=== PATIENT | male | born 1945 | race Caucasian/White ===

== ENCOUNTER 2017-07-13 23:14 | Inpatient (IN) ==
[2017-07-14] MEDS ORDERED: Naloxone 0.4 MG/ML INJ IVP PRN (00:44)
[2017-07-14] MEDS ORDERED: *HR* FentaNYL (PF) 100 MCG/2 ML VIAL IVP ONE (00:53)
--- NOTE | 2017-07-14 00:55 | Internal Med History&Physical ---
Date of Encounter: 07/14/17 Time of Encounter: 00:53 Internal Medicine - H&P: HPI Chief complaint: Respiratroy failure Admitted From: Direct Admit Plans for Post Hospital Care: Home History of present illness: Mr. Castillo is a 72 year old male with history of COPD, CAD s/p stents, HTN, severe aortic stenosis who is transferred from [place] with respiratory failure. He had presented there by EMS after called them as he had acute onset of respiratory distress. He was intubated upon arrival as his O2 sats were 70-80% despite bagging. I spoke to the over the phone who stated that he was doing well during the day but then suddenly started saying that he doesnt feel well. He was about to sit down when he suddenly started having respiratory issues and became lethargic and somnolent. Unsure if he was unresponisive but EMS were called. She also reports some blood around his mouth but does not describe hemoptysis. She did say that he was having a mild dry cough during the day. At [place] after intubation, his work up showed opacities and picture of ARDS. ABG showed acidosis with hypercarbia and hypoxia prior to intubation. Labs showed WBC count of 15.6. Creatinine 1.37, lactic acid 2.6, BNP >5000, troponin .08. Patient was very hypertensive with systolic in the 200s there and diastolic in the 130s. EKG with sinus tachycardia there. He was put on propofol after intubation and had a drop in his blood pressure to the 80/50 there and he subsequently received 500 cc bolus. Prior to that he received IV lasix, IV solumedrol, Nebs, IV rocephin/azithromax. When they called about the transfer, I had asked them to try to wean the patient down on the propofol and see how his BP does. It did come back up to the 90s-low 100s systolically but the patient became agitated. He was given IV fentanyl and sent here on propofol at a lower dose. Last heart cath Feb 2107 showed Moderate atheroscleotic disease and a previous stent in proximal circumflex with 100% in stent stenosis and mild-moderate progression of disease of the RCA. medical management was recommended. TTE october 2016 with EF 35-40%,, mild diastolic dysfunction, severe aortic stenosis. Past Med Surg Social Fam HX - Past Medical History Medical history: aortic aneurysm, CHF, coronary artery disease, hyperlipidemia, hypertension, TIA Psychiatric history: no psych history - Past Surgical History Surgical History: angioplasty/stent (2006), other (Abdominal aortic aneurysm repair) - Social History Smoking Status: Former smoker Smokeless Tobacco Status: No Alcohol use: none Drug use: none Internal Medicine - H&P: Meds Albuterol Sulfate [Ventolin Hfa] 18 gm IH PRN PRN 10/28/16 [History] Clopidogrel Bisulfate [Plavix] 75 mg PO DAILY 10/28/16 [History] Docusate [Colace] 100 mg PO DAILY 10/28/16 [History] Ezetimibe [Zetia] 10 mg PO DAILY 10/28/16 [History] Isosorbide MONOnitrate (24 HR) [Imdur] 60 mg PO DAILY 10/28/16 [History] Lisinopril [Zestril] 10 mg PO DAILY 10/28/16 [History] Rosuvastatin [Crestor] 40 mg PO HS 10/28/16 [History] Cetirizine HCl [Zyrtec] 10 mg PO DAILY PRN #0 10/30/16 [Rx] Furosemide [Lasix] 40 mg PO DAILY 07/04/17 [History] raNITIdine HCl [Ranitidine HCl] 300 mg PO DAILY 07/04/17 [History] traZODone [TraZODone] 50 mg PO HS PRN 07/13/17 [History] 3 Allergy/AdvReac Type Severity Reaction Status Date / Time citalopram AdvReac Confusion Verified 03/01/17 07:43 ROS unobtainable: due to endotracheal tube All Systems PM: A 10-system review of systems was performed and is negative for pertinent findings except as documented above in the HPI. - Constitutional Exam: GEN: Intubated, sedated HEENT: AT, NC, No cyanosis, oral mucosa is moist, No JVD Lymphatics: No lymphadenoapthy Eyes: Extrocular muscles intact, anicteric CVS:RRR. S1, S2, No m/r/g RESP: Diffuse crackles with coarse breath sounds throughout. ABD: Soft, NT, ND, +BS EXT: No edema, No rashes, 2+ DP NEURO: Patient is sedated but pupils are equal and reactive to light. Internal Med - H&P Results - Labs CBC & Chem 7: 07/14/17 00:46 07/14/17 00:46 - Assessment and plan (1) Acute respiratory failure with hypoxia and hypercapnia Current Visit: Yes Status: Acute Assessment and plan: Multifactorial with acute heart failure, pneumonia, and COPD exacerbation. PE is in the differential as well. Patient is on the vent. Try to wean down propofol and put on fentanyl in person to help his blood pressure. Pulmonary is consulted and they were on the phone with the patient was called for transfer. Stat ABG. Treat underlying causes as below. (2) Elevated troponin Current Visit: Yes Status: Acute Assessment and plan: Mildly elevated at 0.08. On the monitor the patient has ST depression however there was some ST depression and elevation on his previous EKG as well. We will repeat this EKG here and order stat troponins and trend them. Cardiology consult. Echocardiogram ordered. (3) Acute exacerbation of congestive heart failure Current Visit: Yes Status: Acute Assessment and plan: Consult cardiology. Echocardiogram. Lasix 40 mg twice a day IV on blood pressure tolerates. Patient is status post 40 mg IV Lasix at [place]. Monitor I&O 's. Qualifiers: Heart failure type: combined systolic and diastolic Qualified Code(s): I50.43 - Acute on chronic combined systolic (congestive) and diastolic ( congestive) heart failure (4) Pneumonia Current Visit: Yes Status: Acute Assessment and plan: We will continue Zithromax and Rocephin. Follow up on cultures. Nebs. Qualifiers: Pneumonia type: due to unspecified organism Laterality: unspecified laterality Lung location: unspecified part of lung Qualified Code(s): J18.9 - Pneumonia, unspecified organism (5) COPD exacerbation Current Visit: Yes Status: Acute Assessment and plan: Patient has history of COPD and not on oxygen. We will place on IV Solu- Medrol. Vent support. (6) Hypertensive emergency Current Visit: No Status: Acute Assessment and plan: Blood pressure was elevated at [place] is mentioned in HPI. Currently somewhat hypotensive. We will try to wean him off propofol and see how his blood pressure does. (7) DVT prophylaxis Current Visit: Yes Status: Acute Assessment and plan: SCDs - Time Spent With Patient Total time spent is greater than 50% in coordination of care (as documented) at patient's floor/unit and/or counseling patient:
[2017-07-14] MEDS: FentaNYL (PF) 1,000 MCG in 0.9 % Sodium Chloride 80 ML IVC SCH ×3 (01:24→23:36)
[2017-07-14 01:31] LABS: Basophils % 0.1 %; Eosinophils % 0.1 %; Hematocrit 42.8 % (37.5-50.1); Hemoglobin 14.2 g/dL (12.9-16.9); Immature Granulocytes % 0.5 % (0-4); Lymphocytes # 0.8 K/mcL (0.6-4.6); Lymphocytes % 7.4 %; Mean Corpuscular HGB Conc 33.2 g/dL (31.6-35.5); Mean Corpuscular Hemoglobin 29.7 pg (28.0-33.3); Mean Corpuscular Volume 89.5 fL (83.0-100.0); Mean Platelet Volume 11.2 fL (9.4-12.4); Monocytes # 0.2 K/mcL (0.0-1.3); Monocytes % 2.1 %; Neutrophils # 9.7 K/mcL (1.6-8.9); Red Blood Count 4.78 M/mcL (4.19-5.50); Red Cell Distribution Width 15.1 % (11.5-14.5); Segmented Neutrophils % 89.8 %
[2017-07-14 01:32] LABS: Platelet Count 93 K/mcL (140-400)
[2017-07-14 01:34] LABS: ABG Base Excess 0 mEq/L (-2 to 3); ABG HCO3 27 mEq/L (21-27); ABG Oxygen Saturation 97 % (95-98); ABG PCO2 48 mmHg (35-45); ABG PH 7.35 pH Units (7.32-7.45); ABG PO2 94 mmHg (85-104); ABG TCO2 28 mEq/L (20-26); Blood Gas Modality PRVC; Blood Gas PEEP 5 cm H2O; Blood Gas Respiration Rate 14; Blood Gas VT 450 cc
[2017-07-14 01:56] LABS: BUN/Creatinine Ratio 14 (6-26); Blood Urea Nitrogen 18 mg/dL (8-23); Calcium 8.2 mg/dL (8.6-10.3); Carbon Dioxide 24 mEq/L (23-29); Chloride 106 mEq/L (98-107); Glucose 136 mg/dL (70-105); Osmolality,Calculated 290 (280-300); Potassium 3.8 mEq/L (3.5-5.1); Sodium 138 mEq/L (136-145); Troponin I 1.23 ng/mL (< 0.04); eGFR For African Americans > 60 (> 60); eGFR For Non-African Americans 55 (> 60)
[2017-07-14] MEDS ORDERED: *HR* Heparin 5,000 UNIT/ML VIAL IVP PRN ×2 (02:37)
[2017-07-14] MEDS ORDERED: *HR* Heparin 5,000 UNIT/ML VIAL IVP ONE (02:37)
--- NOTE | 2017-07-14 02:40 | Event Note ---
Date of Encounter: 07/14/17 Time of Encounter: 02:38 Repeat EKG here showed some concerning findings including ST depressions in some leads and mild ST elevation. Discussed with Dr. Mcallister over the phone and images of EKGs from today and previous were sent to him. Trops came back at 1.23 [facility] Mc[facility]'s opinion is that it is not a STEMI and recommended trending cardiac enzymes. Will start a heparin drip.
[2017-07-14 03:09] LABS: INR 1.2; Prothrombin Time 13.3 Seconds (9.4-12.1)
[2017-07-14 03:12] LABS: Activated Partial Thrombo Time 31.2 Seconds (26.0-36.0)
[2017-07-14] MEDS: Ipratropium/Albuterol Neb 3 ML IH SCH ×4 (03:35→20:08)
[2017-07-14] MEDS: Heparin 25,000 UNIT/500 ML D5W 25,000 UNIT/500 ML BAG IVC SCH ×2 (04:11→23:39)
[2017-07-14] MEDS ORDERED: *HR* Heparin 5,000 UNIT/ML VIAL SQ SCH (06:00)
[2017-07-14] MEDS: methylPREDNISolone 125 MG/2 ML VIAL IVP SCH ×5 (06:07→23:38)
[2017-07-14] MEDS: cefTRIAXone 1,000 MG in Water for inj. (sterile) 20 ML 10 ML IVP SCH (07:34)
[2017-07-14 07:43] LABS: Alanine Aminotransferase 17 Units/L (7-52); Albumin 3.1 g/dL (3.5-5.7); Albumin/Globulin Ratio 1.1 (1.1-2.2); Alkaline Phosphatase 113 Units/L (34-104); Aspartate Amino Transferase 31 Units/L (13-39); BUN/Creatinine Ratio 15 (6-26); Bilirubin,Total 0.6 mg/dL (0.3-1.0); Blood Urea Nitrogen 21 mg/dL (8-23); Calcium 8.1 mg/dL (8.6-10.3); Carbon Dioxide 25 mEq/L (23-29); Chloride 106 mEq/L (98-107); Globulin 2.8 g/dL (2.4-3.5); Glucose 161 mg/dL (70-105); Osmolality,Calculated 294 (280-300); Sodium 139 mEq/L (136-145); Total Protein 5.9 g/dL (6.4-8.9); eGFR For African Americans > 60 (> 60); eGFR For Non-African Americans 51 (> 60)
[2017-07-14] MEDS ORDERED: Furosemide 40 MG/4 ML VIAL IVP SCH (08:00)
--- NOTE | 2017-07-14 08:41 | Pulmonology Consult Note ---
<Supa Cho - Last Filed: 07/14/17 10:32> Date of Encounter: 07/14/17 Time of Encounter: 07:10 Assessment and Plan (1) Acute respiratory failure with hypoxia and hypercapnia Current Visit: Yes Status: Acute Acute respiratory failure with hypoxia and hypercapnia, intubated on ventilator Acutely distressed on presentation, intubated immediately Likely cause of distress is acute pulmonary edema secondary to heart failure/ NSTEMI CXR showed diffuse opacification consistent with flash pulmonary edema ABG 7.12/80/55/26/75 on 100% NRB 7.35/48/94/27/97 on 60% FIO2 (PRVC) Suspect this is in response to cardiac stress from NSTEMI We will get a Stat TTE, Consult cardiology Don't highly suspect infectious etiology, but will start empiric antibiotics and deescalate as able Rocephin Day 1 Azithromycin Day 1 We will give IV Diuresis with 40mg Lasix BID Monitor Daily ABGs (2) NSTEMI (non-ST elevated myocardial infarction) Current Visit: Yes Status: Acute NSTEMI Elevated troponins trending up (0.03 -> 0.08 -> 1.23 -> 1.62) Flash pulmonary edema on CXR and EKG did show ST-T Depressions in inferolateral leads which appears to be new We will repeat TTE today Continue heparin drip pending cardiology evaluation Cardiology consult, appreciate recommendations (3) CHF (congestive heart failure) Current Visit: Yes Status: Acute CHF with reduced LVEF, acute exacerbation Flash pulmonary edema on CXR, BNP >5000 TTE 10/2016 LVEF 35-40% Moderate global LV systolic dysfunction Apparent Severe Aortic stenosis [facility] 02/24 Moderate atherosclerotic CAD Prior stent to proximal circumflex with 100% stenosis Moderate RCA disease which was not stented We will give Lasix IV for aggressive diuresis Repeat TTE today Cardiology consultation Qualifiers: Heart failure type: systolic Heart failure chronicity: acute on chronic Qualified Code(s): I50.23 - Acute on chronic systolic (congestive) heart failure (4) COPD exacerbation Current Visit: Yes Status: Acute COPD, suspected exacerbation IV Solu-medrol 60mg q6h Broad spectrum antibiotics (5) DVT prophylaxis Current Visit: Yes Status: Acute On heparin drip History of Present Illness Consult date: 07/14/17 Requesting physician: Summer Blake Reason for consult: other (Respiratory failure) Chief complaint: Respiratory failure History of present illness: Mr. Castillo -year-old gentleman with history of COPD, CAD status post stents, hypertension, severe aortic stenosis was transferred from [place] with respiratory failure. He is intubated at time of examination and history is primarily obtained from previous notes as well as family. He initially presented to [place] via EMS due to acute respiratory distress. The patient was at home and went to sit down, at which time he became lethargic and stated that he did not feel well. Shortly after that he became unresponsive and EMS was called. The apparently did mention that there is blood around his mouth but describes no hemoptysis to be seen. Prior to this incident the patient was apparently well despite a mild dry cough. Upon arrival of EMS, it was apparently noted that the patient's oxygen saturation was 70-80%, despite use of BVM for additional respirations. At [facility], the patient presented in acute respiratory distress and was immediately intubated. At that time he had a chest x-ray which demonstrated diffuse opacifications which was concerning for ARDS, and his ABG demonstrated hypercapnia and hypoxia. Significantly, he was found to have a BNP of greater than 5000 and a positive troponin of 0.08. He also experienced hypotension with blood pressures around 80/50 with the addition of IV sedation, however it improved with fluids and lower sedation doses. He was transferred to the [facility] ICU for further management. Past Med Surg Social Fam - Past Medical History Medical history: aortic aneurysm, CHF, coronary artery disease, hyperlipidemia, hypertension, TIA Psychiatric history: no psych history - Past Surgical History Surgical History: angioplasty/stent (2006), other (Abdominal aortic aneurysm repair) - Social History Smoking Status: Former smoker Smokeless Tobacco Status: No Alcohol use: none Drug use: none Medications and Allergies Albuterol Sulfate [Ventolin Hfa] 18 gm IH PRN PRN 10/28/16 [History] Clopidogrel Bisulfate [Plavix] 75 mg PO DAILY 10/28/16 [History] Docusate [Colace] 100 mg PO DAILY 10/28/16 [History] Ezetimibe [Zetia] 10 mg PO DAILY 10/28/16 [History] Isosorbide MONOnitrate (24 HR) [Imdur] 60 mg PO DAILY 10/28/16 [History] Lisinopril [Zestril] 10 mg PO DAILY 10/28/16 [History] Rosuvastatin [Crestor] 40 mg PO HS 10/28/16 [History] Cetirizine HCl [Zyrtec] 10 mg PO DAILY PRN #0 10/30/16 [Rx] Furosemide [Lasix] 40 mg PO DAILY 07/04/17 [History] raNITIdine HCl [Ranitidine HCl] 300 mg PO DAILY 07/04/17 [History] traZODone [TraZODone] 50 mg PO HS PRN 07/13/17 [History] Metoprolol Succinate [Toprol Xl] 25 mg PO DAILY 07/14/17 [History] 3 Allergy/AdvReac Type Severity Reaction Status Date / Time citalopram AdvReac Confusion Verified 03/01/17 07:43 ROS unobtainable: due to endotracheal tube All Systems: The remainder of the systems were reviewed and are negative Physical Examination Vital Signs: Vital Signs, Last 4 Hours Temp Pulse Resp BP Pulse Ox 07/14/17 07:54 96.5 F L 07/14/17 07:45 61 07/14/17 07:22 15 106/72 96 07/14/17 07:00 59 16 106/72 96 07/14/17 06:12 16 97/65 96 07/14/17 06:00 61 16 97/65 96 07/14/17 05:06 66 18 100/69 96 Gen: Vitals noted. No acute distress. Mildly sedated on ventilator HEENT: PERRL/EOMI, oropharynx clear, Normocephalic, atraumatic Neck: Supple. No adenopathy. No obvious JVD Cardiac: RRR, no murmur, +S1/S2 Pulmonary: Lung sounds coarse b/l with some wet crackles noted Abdomen: soft, nontender, no guarding Back: Nontender throughout. MSK: ROM intact, no joint swelling noted Extremities: no BLE edema, nontender calf, no cyanosis or clubbing Neuro: moves all extremities, no focal deficits on mild sedation Ventilator Settings Ventilator Settings: Ventilator Settings, Last 8 Hours Ventilator Mode VC+ Ventilator Mode VC+ Ventilator Mode VC+ Ventilator Mode VC+ Ventilator Mode VC+ Ventilator Mode VC+ Ventilator Mode VC+ Ventilator Tidal Volume 450 Setting Ventilator Tidal Volume 450 Setting Ventilator Tidal Volume 450 Setting Ventilator Tidal Volume 450 Setting Ventilator Tidal Volume 450 Setting Ventilator Tidal Volume 450 Setting Ventilator Tidal Volume 450 Setting Ventilator Tidal Volume 450 Setting Ventilator Tidal Volume 450 Setting Ventilator Tidal Volume 450 Setting Ventilator Tidal Volume 450 Setting Ventilator Respiratory Rate 14 Setting Ventilator Respiratory Rate 14 Setting Ventilator Respiratory Rate 14 Setting Ventilator Respiratory Rate 14 Setting Ventilator Respiratory Rate 14 Setting Ventilator Respiratory Rate 14 Setting Ventilator Respiratory Rate 14 Setting Ventilator Respiratory Rate 14 Setting Ventilator Respiratory Rate 14 Setting Ventilator Respiratory Rate 14 Setting Ventilator Respiratory Rate 14 Setting Actual Respiratory Rate 15 Actual Respiratory Rate 16 Actual Respiratory Rate 15 Actual Respiratory Rate 16 Actual Respiratory Rate 18 Actual Respiratory Rate 16 Actual Respiratory Rate 16 Actual Respiratory Rate 18 Actual Respiratory Rate 20 Actual Respiratory Rate 22 Actual Respiratory Rate 25 Positive End Expiratory 5 Pressure Positive End Expiratory 5 Pressure Positive End Expiratory 5 Pressure Positive End Expiratory 5 Pressure Positive End Expiratory 5 Pressure Positive End Expiratory 5 Pressure Positive End Expiratory 5 Pressure Positive End Expiratory 5 Pressure Positive End Expiratory 5 Pressure Positive End Expiratory 5 Pressure Positive End Expiratory 5 Pressure Peak Inspiratory Airway 21 Pressure Peak Inspiratory Airway 17 Pressure Peak Inspiratory Airway 19 Pressure Peak Inspiratory Airway 17 Pressure Peak Inspiratory Airway 18 Pressure Peak Inspiratory Airway 19 Pressure Peak Inspiratory Airway 20 Pressure Peak Inspiratory Airway 19 Pressure Peak Inspiratory Airway 20 Pressure Peak Inspiratory Airway 21 Pressure Peak Inspiratory Airway 19 Pressure Results - Laboratory Findings CBC and BMP: 07/14/17 00:46 07/14/17 07:15 ABG ABG pH 7.35 pH Units (7.32-7.45) D 07/14/17 01:31 ABG pCO2 48 mmHg (35-45) H D 07/14/17 01:31 ABG pO2 94 mmHg (85-104) 07/14/17 01:31 ABG O2 Saturation 97 % (95-98) 07/14/17 01:31 PT/INR, D-dimer PT 13.3 Seconds (9.4-12.1) H 07/14/17 01:20 Abnormal lab findings: Abnormal lab results RDW 15.1 % (11.5-14.5) H 07/14/17 00:46 Plt Count 93 K/mcL (140-400) L 07/14/17 00:46 Neutrophils # 9.7 K/mcL (1.6-8.9) H 07/14/17 00:46 PT 13.3 Seconds (9.4-12.1) H 07/14/17 01:20 ABG pCO2 48 mmHg (35-45) H D 07/14/17 01:31 ABG Total CO2 28 mEq/L (20-26) H 07/14/17 01:31 Creatinine 1.37 mg/dL (0.70-1.30) H 07/14/17 07:15 Est GFR (Non-Af Amer) 51 (> 60) L 07/14/17 07:15 Glucose 161 mg/dL (70-105) H 07/14/17 07:15 POC Glucose 114 mg/dL (70-99) H 07/14/17 00:36 Calcium 8.1 mg/dL (8.6-10.3) L 07/14/17 07:15 Alkaline Phosphatase 113 Units/L (34-104) H 07/14/17 07:15 Troponin I 1.62 ng/mL (< 0.04) H* 07/14/17 07:15 B-Natriuretic Peptide > 5000 pg/mL (Less than 100) H 07/14/17 07:15 Serum Total Protein 5.9 g/dL (6.4-8.9) L 07/14/17 07:15 Albumin 3.1 g/dL (3.5-5.7) L 07/14/17 07:15 - Microbiology Findings Microbiology Findings: Microbiology, Last 48 Hours 07/14/17 02:46 Legionella Antigen - Final Urine,Clean Catch Streptococcus pneumoniae Antigen (M - Final - Clinical Findings Intake & Output: Intake & Output 07/13/17 07/14/17 07/14/17 23:59 07:59 15:59 Intake Total 111 / 111 Output Total 625 / 625 Balance -514 / -514 Weight 65.1 kg Consult Discharge Plan - Plan Referrals: Brad Collins DO [Primary Care Provider] - <Brandi Valdivia - Last Filed: 07/14/17 15:07> Date of Encounter: 07/14/17 All Systems: The remainder of the systems were reviewed and are negative Physical Examination Vital Signs: Vital Signs, Last 4 Hours Temp Pulse Resp BP Pulse Ox 07/14/17 13:00 68 14 75/55 96 07/14/17 12:00 72 14 77/59 96 07/14/17 11:26 96.4 F L 07/14/17 11:22 22 99/65 95 07/14/17 11:00 69 Ventilator Settings Ventilator Settings: Ventilator Settings, Last 8 Hours Ventilator Mode VC+ Ventilator Mode VC+ Ventilator Mode VC+ Ventilator Mode VC+ Ventilator Mode VC+ Ventilator Mode VC+ Ventilator Mode VC+ Ventilator Tidal Volume 450 Setting Ventilator Tidal Volume 450 Setting Ventilator Tidal Volume 450 Setting Ventilator Tidal Volume 450 Setting Ventilator Tidal Volume 450 Setting Ventilator Tidal Volume 450 Setting Ventilator Tidal Volume 450 Setting Ventilator Tidal Volume 450 Setting Ventilator Tidal Volume 450 Setting Ventilator Tidal Volume 450 Setting Ventilator Respiratory Rate 14 Setting Ventilator Respiratory Rate 14 Setting Ventilator Respiratory Rate 14 Setting Ventilator Respiratory Rate 14 Setting Ventilator Respiratory Rate 14 Setting Ventilator Respiratory Rate 14 Setting Ventilator Respiratory Rate 14 Setting Ventilator Respiratory Rate 14 Setting Ventilator Respiratory Rate 14 Setting Ventilator Respiratory Rate 14 Setting Actual Respiratory Rate 14 Actual Respiratory Rate 14 Actual Respiratory Rate 22 Actual Respiratory Rate 14 Actual Respiratory Rate 14 Actual Respiratory Rate 14 Actual Respiratory Rate 14 Actual Respiratory Rate 15 Actual Respiratory Rate 16 Positive End Expiratory 8 Pressure Positive End Expiratory 8 Pressure Positive End Expiratory 8 Pressure Positive End Expiratory 8 Pressure Positive End Expiratory 8 Pressure Positive End Expiratory 8 Pressure Positive End Expiratory 8 Pressure Positive End Expiratory 8 Pressure Positive End Expiratory 5 Pressure Positive End Expiratory 5 Pressure Peak Inspiratory Airway 14 Pressure Peak Inspiratory Airway 13 Pressure Peak Inspiratory Airway 19 Pressure Peak Inspiratory Airway 21 Pressure Peak Inspiratory Airway 24 Pressure Peak Inspiratory Airway 19 Pressure Peak Inspiratory Airway 17 Pressure Peak Inspiratory Airway 21 Pressure Peak Inspiratory Airway 17 Pressure Results - Laboratory Findings CBC and BMP: 07/14/17 00:46 07/14/17 07:15 ABG ABG pH 7.33 pH Units (7.32-7.45) 07/14/17 14:37 ABG pCO2 49 mmHg (35-45) H 07/14/17 14:37 ABG pO2 135 mmHg (85-104) H 07/14/17 14:37 ABG O2 Saturation 99 % (95-98) H 07/14/17 14:37 PT/INR, D-dimer PT 13.3 Seconds (9.4-12.1) H 07/14/17 01:20 Abnormal lab findings: Abnormal lab results RDW 15.1 % (11.5-14.5) H 07/14/17 00:46 Plt Count 93 K/mcL (140-400) L 07/14/17 00:46 Neutrophils # 9.7 K/mcL (1.6-8.9) H 07/14/17 00:46 PT 13.3 Seconds (9.4-12.1) H 07/14/17 01:20 APTT 156.4 Seconds (26.0-36.0) H* D 07/14/17 10:32 ABG pCO2 49 mmHg (35-45) H 07/14/17 14:37 ABG pO2 135 mmHg (85-104) H 07/14/17 14:37 ABG Total CO2 28 mEq/L (20-26) H 07/14/17 14:37 ABG O2 Saturation 99 % (95-98) H 07/14/17 14:37 Creatinine 1.37 mg/dL (0.70-1.30) H 07/14/17 07:15 Est GFR (Non-Af Amer) 51 (> 60) L 07/14/17 07:15 Glucose 161 mg/dL (70-105) H 07/14/17 07:15 POC Glucose 114 mg/dL (70-99) H 07/14/17 00:36 Calcium 8.1 mg/dL (8.6-10.3) L 07/14/17 07:15 Alkaline Phosphatase 113 Units/L (34-104) H 07/14/17 07:15 Troponin I 1.10 ng/mL (< 0.04) H* 07/14/17 12:44 B-Natriuretic Peptide > 5000 pg/mL (Less than 100) H 07/14/17 07:15 Serum Total Protein 5.9 g/dL (6.4-8.9) L 07/14/17 07:15 Albumin 3.1 g/dL (3.5-5.7) L 07/14/17 07:15 - Microbiology Findings Microbiology Findings: Microbiology, Last 48 Hours 07/14/17 02:46 Legionella Antigen - Final Urine,Clean Catch Streptococcus pneumoniae Antigen (M - Final - Clinical Findings Intake & Output: Intake & Output 07/13/17 07/14/17 07/14/17 23:59 07:59 15:59 Intake Total 111 / 111 63 / 63 Output Total 625 / 625 100 / 100 Balance -514 / -514 -37 / -37 Weight 65.1 kg - Attending Attestation I saw and evaluated this patient and my medical decision-making was reviewed with the Resident Physician. I agree with the documented findings, disposition and treatment plan as described except to the extent set forth below. We independently had [id number] contact with the patient I spent 40 minutes of Critical Care time with this patient. It involved decision making of high complexity to assess, manipulate, and support vital organ system failure and/or to prevent further life threatening deterioration of the patient's condition. The time involved in the performance of separately reportable procedures was not counted toward critical care time. Patient seen and examined at bedside Labs, radiology, chart personally reviewed. Management was reviewed during multidisciplinary critical care rounds. BRIM MOLDER:Patient is intubated and sedated but patient is arousable and he is following commands . Pulm: Patient presented with Acute on chronic respiratory failure with hypoxia and hyercarbia secondary to cardiogenic pulmonary edema with background chronic systolic heart failure with EF 35-40% BNP> 5000 complicated by moderare to severe aortic stenosis with NSTEM with trending down troponin . ECHO pending . Cardiology consulted Cards: Blood pressure border line will hold off lasix To continue ASA , Hepain for NSTEMI . Patient has moderate to Severe Aortic stenosis if patient is not getting better he might need tertiary care referral for evaluation for TAVR FEN-GI:Nutrition per recs Renal: Lab reviewed ID:: No active source of infection because of the blood pressure borderline rajan cultures will add leavquin to Ceftraxone Heme/Onc: Labs reviewed Endo: Glucose Monitored Integ/MSK: Skin Care per routine ICU Nursing Protocol to prevent ulcers. Lines: All lines examined without evidence of infection : Dispo: Remains critically ill CODE:Full Code
[2017-07-14] MEDS: Aspirin 325 MG TABLET GTUBE SCH (10:07)
[2017-07-14 11:53] LABS: Activated Partial Thrombo Time 156.4 Seconds (26.0-36.0)
[2017-07-14 11:57] LABS: Heparin anti-factor XA UFH 0.6 IU/mL (0.30-0.70)
--- NOTE | 2017-07-14 13:05 | Cardiology Consult Note ---
Date of Encounter: 07/14/17 Time of Encounter: 13:02 Assessment and Plan (1) Aortic stenosis Current Visit: Yes Status: Acute Personally reviewed patient's NICHELLE images again. NICHELLE images were not optimal and CHRISTIANO by Continuity could not be well obtained. Visually, degree of narrowing appears moderate-severe. Would unlikely be a good candidate for OHS. May consider referral for TAVR once patient has clinically improved. Echo ordered by primary service. Qualifiers: Cardiac valve disease etiology: etiology unspecified Qualified Code(s): I35.0 - Nonrheumatic aortic (valve) stenosis (2) CHF (congestive heart failure) Current Visit: Yes Status: Acute Cause for presentation thought secondary to acute flash pulmonary edema per records. Patient had an echo in October 2016 demonstrating EF 35-40% when he was hospitalized at [place]. This was presumably new - prior echo from March 2014 demonstrated normal LV systolic function. As an outpatient, he underwent heart catheterization to look for obstructive CAD as a potential cause for this finding. Intervention was not performed at the time. Catheterization demonstrated moderate CAD, known occluded circumflex stent, mild to moderate RCA disease. Agree with IV diuresis at this time as BP allows. BB on hold due to blood pressure. BP management per primary team. Echo pending. Qualifiers: Heart failure type: systolic Heart failure chronicity: acute on chronic Qualified Code(s): I50.23 - Acute on chronic systolic (congestive) heart failure (3) Elevated troponin Current Visit: Yes Status: Acute Troponin elevation to 1.62, now downtrending. Etiology unclear and may represent ACS. Await echo findings. Continue heparin gtt, asa, statin. Discussion w patient/family: Patient intubated and sedated. Family not present. Thank you for involving us in the care of your patient. Please call with any questions. History of Present Illness Consult date: 07/14/17 Requesting physician: Summer Blake Consult reason: CHF, aortic stenosis Chief complaint: Dyspnea History of present illness: Mr. Castillo is a 72 year old male who is presently intubated and sedated. Per medical notes, patient presented with hypertensive urgency, acute respiratory distress with chest x-ray demonstrating diffuse pulmonary edema and concern for ARDS. He initially presented to [place] emergency room and was transferred here. The patient is known to me from outpatient setting having initially been referred 01/15/17 after being diagnosed with newly discovered LV systolic heart failure, EF 35-40% in October 2016 when he was admitted at that time. Echo also demonstrated severe aortic stenosis with area gradient mismatch. Medical history also significant for NSTEMI March 2014 where he underwent a heart catheterization showing total occlusion of the left circumflex I could not be intervened upon. At that time an echo demonstrated normal LV systolic function with mild to moderate aortic stenosis. Patient subsequently underwent a NICHELLE in February of 2017 which demonstrated trileaflet aortic valve with partial fusion of the left and noncoronary cusps restricting leaflet motion. By planimentry, CHRISTIANO 1.87cm2. Unable to adequately determine CHRISTIANO by Continuity. Visually, degree of narrowing did not appear severe. At the bedside, the patient is intubated and sedated. Labs demonstrated elevated troponin. Patient was started on heparin. He is being diuresed with IV Lasix. Past Med Surg Social Fam HX - Past Medical History Source: old records reviewed Medical history: CHF, coronary artery disease, hyperlipidemia, hypertension, TIA , valvular heart disease Psychiatric history: no psych history - Past Surgical History Surgical History: angioplasty/stent (2006), other (Abdominal aortic aneurysm repair) - Social History Smoking Status: Former smoker Smokeless Tobacco Status: No Alcohol use: none Drug use: none Medications and Allergies Albuterol Sulfate [Ventolin Hfa] 18 gm IH PRN PRN 10/28/16 [History] Clopidogrel Bisulfate [Plavix] 75 mg PO DAILY 10/28/16 [History] Docusate [Colace] 100 mg PO DAILY 10/28/16 [History] Ezetimibe [Zetia] 10 mg PO DAILY 10/28/16 [History] Isosorbide MONOnitrate (24 HR) [Imdur] 60 mg PO DAILY 10/28/16 [History] Lisinopril [Zestril] 10 mg PO DAILY 10/28/16 [History] Rosuvastatin [Crestor] 40 mg PO HS 10/28/16 [History] Cetirizine HCl [Zyrtec] 10 mg PO DAILY PRN #0 10/30/16 [Rx] Furosemide [Lasix] 40 mg PO DAILY 07/04/17 [History] raNITIdine HCl [Ranitidine HCl] 300 mg PO DAILY 07/04/17 [History] traZODone [TraZODone] 50 mg PO HS PRN 07/13/17 [History] 3 Allergy/AdvReac Type Severity Reaction Status Date / Time citalopram AdvReac Confusion Verified 03/01/17 07:43 ROS unobtainable: due to endotracheal tube All Systems Review: The remainder of the systems were reviewed and are negative Physical Examination Vital Signs, Last 4 Hours Temp Pulse Resp BP Pulse Ox 07/14/17 11:26 96.4 F L 07/14/17 11:22 22 99/65 95 07/14/17 11:00 69 07/14/17 10:00 74 14 99/65 95 07/14/17 09:19 14 103/71 96 General: Other (intubated, sedated) HEENT: Atraumatic, Normocephaly Neck: Other (JVP not well appreciated) Cardiac: Reg Rate and Rhythm, Other (murmur not well appreciated) Lungs: Other (diminished breath sounds bilaterally) Neuro: Other (intubated, sedated, ETT in place) Extremities: No Edema Results 07/14/17 00:46 07/14/17 07:15 Lab Results 07/14/17 07/14/17 07/14/17 00:46 00:46 01:20 WBC 10.8 Hgb 14.2 D Hct 42.8 Plt Count 93 L INR 1.2 APTT 31.2 Sodium 138 Potassium 3.8 Chloride 106 Carbon Dioxide 24 BUN 18 Creatinine 1.27 Glucose 136 H Calcium 8.2 L Total Bilirubin AST ALT Alkaline Phosphatase Troponin I 1.23 H* B-Natriuretic Peptide 07/14/17 07/14/17 07/14/17 07:15 07:15 07:15 WBC Hgb Hct Plt Count INR APTT Sodium 139 Potassium 4.0 Chloride 106 Carbon Dioxide 25 BUN 21 Creatinine 1.37 H Glucose 161 H Calcium 8.1 L Total Bilirubin 0.6 AST 31 ALT 17 Alkaline Phosphatase 113 H Troponin I 1.62 H* B-Natriuretic Peptide > 5000 H 07/14/17 10:32 WBC Hgb Hct Plt Count INR APTT 156.4 H* D Sodium Potassium Chloride Carbon Dioxide BUN Creatinine Glucose Calcium Total Bilirubin AST ALT Alkaline Phosphatase Troponin I B-Natriuretic Peptide - Imaging and Cardiology Chest Xray: report reviewed Echo: report reviewed Other Results: NICHELLE reviewed - EKG Interpretation EKG results cardiology: personally reviewed (Presenting ECG demonstrated sinus tachycardia, LVH with secondary ST-T wave changes but without ischemic findings. Follow up ECG 07/14/17 demonstrates normal sinus rhythm with diffuse marketed nonspecific ST-T wave abnormalities likely secondary to LVH - ST-T wave abnormalities mildly worse diffusely when compared to ECG 07/04/2017), other (Telemetry reviewed, average heart rate 65 bpm, no concerning dysrhythmia) Consult Discharge Plan - Plan Referrals: Brad Collins DO [Primary Care Provider] -
[2017-07-14 14:41] LABS: ABG Base Excess 0 mEq/L (-2 to 3); ABG HCO3 26 mEq/L (21-27); ABG Oxygen Saturation 99 % (95-98); ABG PCO2 49 mmHg (35-45); ABG PH 7.33 pH Units (7.32-7.45); ABG PO2 135 mmHg (85-104); ABG TCO2 28 mEq/L (20-26); Blood Gas Modality PRVC; Blood Gas PEEP 8 cm H2O; Blood Gas Respiration Rate 14; Blood Gas VT 450 cc
[2017-07-14] MEDS ORDERED: Levofloxacin 750 MG/150 ML 750 MG/150 ML BAG IVPB SCH (15:00)
--- NOTE | 2017-07-14 16:35 | Procedure Note ---
<Supa Cho - Last Filed: 07/14/17 16:30> Date of procedure: 07/14/17 Pre-op diagnosis: Hypotension Post-op diagnosis: same Procedure: Procedure Note: Central Venous Catheter Insertion Indication: Hypotension Attending Physician: MD Bon Fresh Work Inspector: DO Tammie Indication: This is a 72 year-old man with history of COPD, CAD status post stents, hypertension, severe aortic stenosis who was transferred here with severe respiratory failure requiring intubation. The patient's chest x-ray did demonstrate significant flash pulmonary edema for which we have been treating with diuresis, however the patient developed hypotension with MAP ~60. Consent: Detailed explanation of the procedure, treatment options, risks including but not limited to infection and bleeding, and benefits were explained to the patient's , who is next of kin. A written informed consent was obtained. Technique: A time out was preformed identifying the correct procedure, the correct location with the nursing staff. The right groin was prepped with 2% chlorhexidine and draped with a full length sterile sheet in the usual fashion. The Right femoral vein was accessed under ultrasound guidance with an 18 gauge thin wall needle. A triple lumen was inserted via the seldinger technique. Blood was withdrawn from all lumens and flushed with normal saline. The catheter was sutured in place and a sterile dressing was applied over the site prior to removal of drapes. The patient tolerated the procedure well and there were no complications. Chest x ray: pending EBL: 5mL Complication: None Anesthesia: IV sedation Surgeon: Supa Cho Was there an assistant banquet manager present: Yes Automatic Stacker: Daisy Crockett Estimated blood loss (cc): 5 Specimen: 0 Pathology: none sent Condition: critical Disposition: ICU <Daisy Crockett - Last Filed: 07/14/17 16:56> Procedure: I examined this pt and talked to the family about his Central IV line placement. I supervised the whole procedure and at bed side with the resident Dr. Cho while he placed Rt Femoral central IV line with ultra sound guided under sterile conditions. No complications noticed.
[2017-07-14] MEDS: Norepinephrine 4 MG in D5% in Water 250 ML IVC SCH (16:59)
[2017-07-14] MEDS ORDERED: Azithromycin 500 MG in D5% in Water 250 ML IVPB SCH (21:00)
[2017-07-15 03:24] LABS: Basophils % 0.1 %; Hematocrit 39.6 % (37.5-50.1); Hemoglobin 13.1 g/dL (12.9-16.9); Immature Granulocytes % 0.3 % (0-4); Lymphocytes # 0.9 K/mcL (0.6-4.6); Lymphocytes % 7.4 %; Mean Corpuscular HGB Conc 33.1 g/dL (31.6-35.5); Mean Corpuscular Hemoglobin 29.7 pg (28.0-33.3); Mean Corpuscular Volume 89.8 fL (83.0-100.0); Mean Platelet Volume 11.4 fL (9.4-12.4); Monocytes # 0.4 K/mcL (0.0-1.3); Monocytes % 3.1 %; Neutrophils # 11.1 K/mcL (1.6-8.9); Platelet Count 141 K/mcL (140-400); Red Blood Count 4.41 M/mcL (4.19-5.50); Red Cell Distribution Width 15.9 % (11.5-14.5); Segmented Neutrophils % 89.1 %
[2017-07-15] MEDS: Ipratropium/Albuterol Neb 3 ML IH SCH ×4 (03:29→21:31)
[2017-07-15 03:41] LABS: Albumin 3.1 g/dL (3.5-5.7); Albumin/Globulin Ratio 1.1 (1.1-2.2); Bilirubin,Total 0.5 mg/dL (0.3-1.0); Calcium 8.1 mg/dL (8.6-10.3); Globulin 2.9 g/dL (2.4-3.5); Potassium 3.8 mEq/L (3.5-5.1)
[2017-07-15 04:56] LABS: ABG Base Excess 3 mEq/L (-2 to 3); ABG HCO3 29 mEq/L (21-27); ABG Oxygen Saturation 83 % (95-98); ABG PCO2 54 mmHg (35-45); ABG PH 7.35 pH Units (7.32-7.45); ABG PO2 50 mmHg (85-104); ABG TCO2 31 mEq/L (20-26); Blood Gas Modality ASSIST CONTROL; Blood Gas PEEP 8 cm H2O; Blood Gas Respiration Rate 14; Blood Gas VT 450 cc
[2017-07-15] MEDS: methylPREDNISolone 125 MG/2 ML VIAL IVP SCH (05:02)
--- NOTE | 2017-07-15 08:20 | Pulmonology Progress Note ---
<PawanSarahsarita M - Last Filed: 07/15/17 10:22> Date of Encounter: 07/15/17 Objective PUL Vital signs: Last Vital Signs Temp 96.8 F L 07/15/17 08:07 Pulse 60 07/15/17 09:00 Resp 14 07/15/17 09:00 BP 117/65 07/15/17 09:00 Pulse Ox 97 07/15/17 09:00 Ventilator Settings Ventilator Settings: Ventilator Settings, Last 8 Hours Ventilator Mode VC+ Ventilator Mode VC+ Ventilator Mode VC+ Ventilator Mode A/C Ventilator Tidal Volume 450 Setting Ventilator Tidal Volume 450 Setting Ventilator Tidal Volume 450 Setting Ventilator Tidal Volume 450 Setting Ventilator Tidal Volume 450 Setting Ventilator Tidal Volume 450 Setting Ventilator Tidal Volume 450 Setting Ventilator Tidal Volume 450 Setting Ventilator Tidal Volume 450 Setting Ventilator Tidal Volume 450 Setting Ventilator Tidal Volume 450 Setting Ventilator Tidal Volume 450 Setting Ventilator Respiratory Rate 14 Setting Ventilator Respiratory Rate 14 Setting Ventilator Respiratory Rate 14 Setting Ventilator Respiratory Rate 14 Setting Ventilator Respiratory Rate 14 Setting Ventilator Respiratory Rate 14 Setting Ventilator Respiratory Rate 14 Setting Ventilator Respiratory Rate 14 Setting Ventilator Respiratory Rate 14 Setting Ventilator Respiratory Rate 14 Setting Ventilator Respiratory Rate 14 Setting Ventilator Respiratory Rate 14 Setting Actual Respiratory Rate 14 Actual Respiratory Rate 14 Actual Respiratory Rate 14 Actual Respiratory Rate 14 Actual Respiratory Rate 14 Actual Respiratory Rate 15 Actual Respiratory Rate 15 Actual Respiratory Rate 15 Actual Respiratory Rate 14 Actual Respiratory Rate 15 Actual Respiratory Rate 15 Positive End Expiratory 8 Pressure Positive End Expiratory 8 Pressure Positive End Expiratory 8 Pressure Positive End Expiratory 8 Pressure Positive End Expiratory 8 Pressure Positive End Expiratory 8 Pressure Positive End Expiratory 8 Pressure Positive End Expiratory 8 Pressure Positive End Expiratory 8 Pressure Positive End Expiratory 8 Pressure Positive End Expiratory 8 Pressure Positive End Expiratory 8 Pressure Peak Inspiratory Airway 24 Pressure Peak Inspiratory Airway 24 Pressure Peak Inspiratory Airway 24 Pressure Peak Inspiratory Airway 26 Pressure Peak Inspiratory Airway 24 Pressure Peak Inspiratory Airway 26 Pressure Peak Inspiratory Airway 26 Pressure Peak Inspiratory Airway 26 Pressure Peak Inspiratory Airway 29 Pressure Peak Inspiratory Airway 26 Pressure Peak Inspiratory Airway 26 Pressure Results - Laboratory Findings CBC and BMP: 07/15/17 03:00 07/15/17 03:00 ABG ABG pH 7.35 pH Units (7.32-7.45) 07/15/17 04:53 ABG pCO2 54 mmHg (35-45) H 07/15/17 04:53 ABG pO2 50 mmHg (85-104) L* 07/15/17 04:53 ABG O2 Saturation 83 % (95-98) L 07/15/17 04:53 PT/INR, D-dimer PT 13.3 Seconds (9.4-12.1) H 07/14/17 01:20 Abnormal lab findings: Abnormal lab results WBC 12.4 K/mcL (4.3-11.1) H 07/15/17 03:00 RDW 15.9 % (11.5-14.5) H 07/15/17 03:00 Neutrophils # 11.1 K/mcL (1.6-8.9) H 07/15/17 03:00 PT 13.3 Seconds (9.4-12.1) H 07/14/17 01:20 APTT 79.9 Seconds (26.0-36.0) H 07/15/17 08:27 ABG pCO2 54 mmHg (35-45) H 07/15/17 04:53 ABG pO2 50 mmHg (85-104) L* 07/15/17 04:53 ABG HCO3 29 mEq/L (21-27) H 07/15/17 04:53 ABG Total CO2 31 mEq/L (20-26) H 07/15/17 04:53 ABG O2 Saturation 83 % (95-98) L 07/15/17 04:53 BUN 41 mg/dL (8-23) H 07/15/17 03:00 Creatinine 2.05 mg/dL (0.70-1.30) H 07/15/17 03:00 Est GFR ( Amer) 39 (> 60) L 07/15/17 03:00 Est GFR (Non-Af Amer) 32 (> 60) L 07/15/17 03:00 Glucose 201 mg/dL (70-105) H 07/15/17 03:00 POC Glucose 202 mg/dL (70-99) H 07/14/17 22:56 Calculated Osmolality 302 (280-300) H 07/15/17 03:00 Calcium 8.1 mg/dL (8.6-10.3) L 07/15/17 03:00 Troponin I 1.10 ng/mL (< 0.04) H* 07/14/17 12:44 B-Natriuretic Peptide > 5000 pg/mL (Less than 100) H 07/14/17 07:15 Serum Total Protein 6.0 g/dL (6.4-8.9) L 07/15/17 03:00 Albumin 3.1 g/dL (3.5-5.7) L 07/15/17 03:00 - Microbiology Findings Microbiology Findings: Microbiology, Last 48 Hours 07/14/17 20:00 Sputum Culture - Final Sputum 07/14/17 02:46 Legionella Antigen - Final Urine,Clean Catch Streptococcus pneumoniae Antigen (M - Final - Clinical Findings Intake & Output: Intake & Output 07/14/17 07/15/17 07/15/17 23:59 07:59 15:59 Intake Total 442 / 442 314 / 314 224 / 224 Output Total 250 / 250 75 / 75 100 / 100 Balance 192 / 192 239 / 239 124 / 124 Consult Discharge Plan - Plan Referrals: Brad Collins DO [Primary Care Provider] - - Attending Attestation I examined this patient and my medical decision-making was reviewed with the Resident Physician. I agree with the documented findings, disposition and treatment plan as described except to the extent set forth below. Patient seen and examined. Labs, radiology, chart personally reviewed. Agree with resident's history and physical, assessment, plan with following comments: CORE PLACER: Patient doesn't follows commands, Pulmonary: Acceptable oxygenation and ventilation, but without treatment of his underlying cardiomyopathy and aortic stenosis it will be difficult to wean him off the vent. Patient vent setting changed and will have follow up ABG. Cardiovascular: Cardiology follow up and if no intervention at [place], then he will need to be transferred to [place]. GI: Nutrition per dietary and GI prophylaxis per routine Heme: DVT prophylaxis per routine ID: Continue antibiotics and plan to de-escalation. Stop Levaquin Renal; urine out put and renal funtion reviewed Endorcine: blood glucose is monitored. Need SSI. Taper steroid. Lines: all lines checked and no evidence of infections Skin: skin care to prevent pressure ulcers per nursing routine care I spent 40 min of Critical Care time with this patient. It involved decision making of high complexity to assess, manipulate, and support vital organ system failure and/or to prevent further life threatening deterioration of the patient' s condition. The time involved in the performance of separately reportable procedures was not counted toward critical care time. <Nando Gan - Last Filed: 07/15/17 16:22> Date of Encounter: 07/15/17 Time of Encounter: 13:16 Assessment and Plan (1) Acute respiratory failure with hypoxia and hypercapnia Current Visit: Yes Status: Acute Acute risk for urgent failure with hypoxia and hypercapnia intubated and on ventilator Likely cause of distress is acute pulmonary edema secondary to heart failure/ and STEMI. Chest x-ray shows diffuse opacifications consistent with flash pulmonary edema this is the same as previous study. ABG 7.12/80/55/26/75 on 100% NRB 7.35/48/94/27/97 on 60% FIO2 (PRVC) 7.35/54/50/29/83 on 50% assist control Suspect this is in response to cardiac stress from NSTEMI. Stat TTE showed left ventricular EF of 30% with aortic stenosis previous one done October 2016 showed 35-40% EF with aortic stenosis. Cardiology saw the patient said they are not a heart catheter candidate at this time due to the creatinine. Also do not think the patient is stable enough for a TAVR we will await their further recommendations. Patient was started on antibiotics Rocephin and Levaquin empirically we Descalated to Rocephin only and discontinued the Levaquin. Patient is being diuresed with 40 mg Lasix twice a day IV. Change sedation from Versed to propofol Continue to monitor daily ABGs, strict I's and O's and daily weights, continue to monitor troponins (2) NSTEMI (non-ST elevated myocardial infarction) Current Visit: Yes Status: Acute Elevated troponins were trending up at (0.03-0.08-1.23-1.62) but now are going down at 0.10. Flash pulmonary edema is seen on chest x-ray EKG shows ST depressions in the inferolateral leads which is new. TTE today showed worsening EF of 30% as well as aortic stenosis. Cardiology is seen the patients awaiting their recommendations. Patient is on heparin Patient currently on norepinephrine Presser blood pressure is stable on this. Unable to wean off at this time. (3) CHF (congestive heart failure) Current Visit: Yes Status: Acute Flash pulmonary edema on chest x-ray BNP greater than 5000. TTE 10/2016 LVEF 35-40% Moderate global LV systolic dysfunction Apparent Severe Aortic stenosis [facility] 02/24 Moderate atherosclerotic CAD Prior stent to proximal circumflex with 100% stenosis Moderate RCA disease which was not stented TTE 05/14/17 LVEF 30% Severe global LV systolic dysfunction Moderate concentric left ventricular hypertrophy Moderate to severe aortic stenosis Continue giving Lasix IV for aggressive diuresis strict I's and O's and daily weights. Await further cardiology recommendations Qualifiers: Heart failure type: systolic Heart failure chronicity: acute on chronic Qualified Code(s): I50.23 - Acute on chronic systolic (congestive) heart failure (4) COPD exacerbation Current Visit: Yes Status: Acute COPD suspected exacerbation most likely secondary to flash bony edema due to decreased cardiac function. IV Solu-Medrol was being being given at 60 mg every 6 hours we are changing that to 40 mg every 8. Patient antibiotics were Descalated from Rocephin and Levaquin to Rocephin only 2 g daily. (5) Hyperglycemia due to type 2 diabetes mellitus Current Visit: Yes Status: Acute Patient did have elevated blood glucose of 201 this could be secondary due to the steroids. We will start low dose insulin drip every 4 hours to stabilize his blood sugars. Qualifiers: Qualified Code(s): E11.65 - Type 2 diabetes mellitus with hyperglycemia (6) DVT prophylaxis Current Visit: Yes Status: Acute On heparin drip. Subjective Principal diagnosis: Respiratory failure/HCAP Interval history: No new events overnight patient still doing well he is still intubated and on the ventilator in no acute distress restraints are still in place. Objective PUL Vital signs: Last Vital Signs Temp 96.8 F L 07/15/17 08:07 Pulse 72 07/15/17 06:00 Resp 14 07/15/17 08:08 BP 94/56 07/15/17 06:11 Pulse Ox 97 07/15/17 08:08 General appearance: no acute distress Eyes: nonicteric ENT: oropharynx moist Effort: normal Auscultation: bilateral: clear, diminished breath sounds Cardiovascular: regular rate and rhythm Gastrointestinal: normoactive bowel sounds, soft, non-tender, non-distended Integumentary: normal Extremities: no cyanosis, no edema, no clubbing Musculoskeletal: no deformities, ROM normal non-focal exam, pupils equal and round, unable to assess due to mental status Ventilator Settings Ventilator Settings: Ventilator Settings, Last 8 Hours Ventilator Mode A/C Ventilator Tidal Volume 450 Setting Ventilator Tidal Volume 450 Setting Ventilator Tidal Volume 450 Setting Ventilator Tidal Volume 450 Setting Ventilator Tidal Volume 450 Setting Ventilator Tidal Volume 450 Setting Ventilator Tidal Volume 450 Setting Ventilator Tidal Volume 450 Setting Ventilator Tidal Volume 450 Setting Ventilator Tidal Volume 450 Setting Ventilator Tidal Volume 450 Setting Ventilator Respiratory Rate 14 Setting Ventilator Respiratory Rate 14 Setting Ventilator Respiratory Rate 14 Setting Ventilator Respiratory Rate 14 Setting Ventilator Respiratory Rate 14 Setting Ventilator Respiratory Rate 14 Setting Ventilator Respiratory Rate 14 Setting Ventilator Respiratory Rate 14 Setting Ventilator Respiratory Rate 14 Setting Ventilator Respiratory Rate 14 Setting Ventilator Respiratory Rate 14 Setting Actual Respiratory Rate 14 Actual Respiratory Rate 14 Actual Respiratory Rate 15 Actual Respiratory Rate 15 Actual Respiratory Rate 15 Actual Respiratory Rate 14 Actual Respiratory Rate 15 Actual Respiratory Rate 15 Actual Respiratory Rate 15 Actual Respiratory Rate 15 Positive End Expiratory 8 Pressure Positive End Expiratory 8 Pressure Positive End Expiratory 8 Pressure Positive End Expiratory 8 Pressure Positive End Expiratory 8 Pressure Positive End Expiratory 8 Pressure Positive End Expiratory 8 Pressure Positive End Expiratory 8 Pressure Positive End Expiratory 8 Pressure Positive End Expiratory 8 Pressure Positive End Expiratory 8 Pressure Peak Inspiratory Airway 24 Pressure Peak Inspiratory Airway 24 Pressure Peak Inspiratory Airway 26 Pressure Peak Inspiratory Airway 26 Pressure Peak Inspiratory Airway 26 Pressure Peak Inspiratory Airway 29 Pressure Peak Inspiratory Airway 26 Pressure Peak Inspiratory Airway 26 Pressure Peak Inspiratory Airway 26 Pressure Peak Inspiratory Airway 26 Pressure Results - Laboratory Findings CBC and BMP: 07/15/17 03:00 07/15/17 03:00 ABG ABG pH 7.35 pH Units (7.32-7.45) 07/15/17 04:53 ABG pCO2 54 mmHg (35-45) H 07/15/17 04:53 ABG pO2 50 mmHg (85-104) L* 07/15/17 04:53 ABG O2 Saturation 83 % (95-98) L 07/15/17 04:53 PT/INR, D-dimer PT 13.3 Seconds (9.4-12.1) H 07/14/17 01:20 Abnormal lab findings: Abnormal lab results WBC 12.4 K/mcL (4.3-11.1) H 07/15/17 03:00 RDW 15.9 % (11.5-14.5) H 07/15/17 03:00 Neutrophils # 11.1 K/mcL (1.6-8.9) H 07/15/17 03:00 PT 13.3 Seconds (9.4-12.1) H 07/14/17 01:20 APTT 53.5 Seconds (26.0-36.0) H 07/15/17 00:30 ABG pCO2 54 mmHg (35-45) H 07/15/17 04:53 ABG pO2 50 mmHg (85-104) L* 07/15/17 04:53 ABG HCO3 29 mEq/L (21-27) H 07/15/17 04:53 ABG Total CO2 31 mEq/L (20-26) H 07/15/17 04:53 ABG O2 Saturation 83 % (95-98) L 07/15/17 04:53 BUN 41 mg/dL (8-23) H 07/15/17 03:00 Creatinine 2.05 mg/dL (0.70-1.30) H 07/15/17 03:00 Est GFR ( Amer) 39 (> 60) L 07/15/17 03:00 Est GFR (Non-Af Amer) 32 (> 60) L 07/15/17 03:00 Glucose 201 mg/dL (70-105) H 07/15/17 03:00 POC Glucose 202 mg/dL (70-99) H 07/14/17 22:56 Calculated Osmolality 302 (280-300) H 07/15/17 03:00 Calcium 8.1 mg/dL (8.6-10.3) L 07/15/17 03:00 Troponin I 1.10 ng/mL (< 0.04) H* 07/14/17 12:44 B-Natriuretic Peptide > 5000 pg/mL (Less than 100) H 07/14/17 07:15 Serum Total Protein 6.0 g/dL (6.4-8.9) L 07/15/17 03:00 Albumin 3.1 g/dL (3.5-5.7) L 07/15/17 03:00 - Microbiology Findings Microbiology Findings: Microbiology, Last 48 Hours 07/14/17 20:00 Sputum Culture - Final Sputum 07/14/17 02:46 Legionella Antigen - Final Urine,Clean Catch Streptococcus pneumoniae Antigen (M - Final - Diagnostic Findings Chest x-ray: report reviewed, image reviewed - Clinical Findings Intake & Output: Intake & Output 07/14/17 07/15/17 07/15/17 23:59 07:59 15:59 Intake Total 442 / 442 114 / 114 Output Total 250 / 250 75 / 75 100 / 100 Balance 192 / 192 39 / 39 -100 / -100 - VTE Documentation of Mechanical Device: Intermittent pneumatic compression device
[2017-07-15] MEDS: Aspirin 325 MG TABLET GTUBE SCH (08:33)
[2017-07-15] MEDS: cefTRIAXone 1,000 MG in Water for inj. (sterile) 20 ML 10 ML IVP SCH (08:33)
[2017-07-15] MEDS: FentaNYL (PF) 1,000 MCG in 0.9 % Sodium Chloride 80 ML IVC SCH ×2 (10:32→20:40)
[2017-07-15] MEDS ORDERED: Lacri-Lube 3.5 GM TUBE BOTH EYES PRN (10:54)
[2017-07-15] MEDS ORDERED: *HR* Dextrose 50 % in Water (Syg) 50 ML SYRINGE IVP PRN (10:55)
[2017-07-15] MEDS ORDERED: Dextrose Gel 15 GM/37.5 ML TUBE PO PRN ×2 (10:55)
[2017-07-15] MEDS ORDERED: D5% in Water 1,000 ML IVC PRN (10:55)
--- NOTE | 2017-07-15 12:00 | Cardiology Progress Note ---
Date of Encounter: 07/15/17 Time of Encounter: 11:30 Assessment and Plan (1) Elevated troponin Current Visit: Yes Status: Acute Peak troponin 1.62 in the setting of acute respiratory failure; NSTEMI type I vs. II. [place] 02/2017: known occluded LCx stent; otherwise non-obstructive CAD. Repeat TTE shows reduced LVEF 30% (EF 35-40%) with similar wall motion abnormality. Not a candidate for ischemic evaluation at present given worsening renal function, on pressors. Continue asa, statin. BB on hold due to hypotension, on pressors. Will continue to follow. (2) CHF (congestive heart failure) Current Visit: Yes Status: Acute Hx of reduced LVEF dating back to October 2016, LVEF 35-40% at that time. Also has known moderate-severe . [place] 02/2017 demonstrated moderate CA, known occluded pLCx (2014), and mild- moderate progressive RCA disease (60% mRCA, 65% dRCA). Presented with acute respiratory hypoxic and hypercapnic respiratory failure, currently intubated/sedated in the ICU. [place] to be secondary to ARDS, flash pulmonary edema. No overt volume overload upon exam. Currently on pressors for BP support. Cautious diuresis--of note, renal function continues to worsen. Resume BB/ACEi when hemodynamically stable, if BP/renal function with allow. Strict I&O's, daily weights, Na/fluid restricted diet. Will continue to follow. Qualifiers: Heart failure type: systolic Heart failure chronicity: acute on chronic Qualified Code(s): I50.23 - Acute on chronic systolic (congestive) heart failure (3) Aortic stenosis Current Visit: Yes Status: Acute Hx of moderate-severe . [place] to further evaluate 2016 demonstrated not severe , however maybe secondary to reduced stroke volume. CHRISTIANO 1.87 cm2, PV 2.75 m/s, MG=15 mmHg. Repeat TTE today shows LVEF 30% with severe global and regional LV systolic dysfunction (similar to 10/2016); moderate cLVH, mild MR, moderate to severe . Discussed with Dr. Mcallister; recommend dobutamine stress echocardiogram to further evaluate severity of when hemodynamically stable and in the outpatient setting. Qualifiers: Cardiac valve disease etiology: etiology unspecified Qualified Code(s): I35.0 - Nonrheumatic aortic (valve) stenosis (4) Acute respiratory failure with hypoxia and hypercapnia Current Visit: Yes Status: Acute Remains intubated and sedated. Mgmt per ICU team. Discussion w patient/family: The assessment and plan as outlined above was discussed with the patient and/or family members who expressed understanding and agreement. All questions were answered. Thank you for involving us in the care of your patient. Please call with any questions. The patient will be discussed and reviewed with Dr. Mcallister; changes to be made accordingly. Subjective Principal diagnosis: Respiratory failure/NSTEMI Interval history: Seen and examined. Patient's sister(s) present at bedside, limited HPI obtained from them. Patient remains intubated/sedated. Does not follow commands. Objective Vital Signs, Last 4 Hours Temp Pulse Resp BP Pulse Ox 07/15/17 11:37 14 97 07/15/17 10:00 97.3 F L 60 14 122/64 97 07/15/17 09:57 14 97 07/15/17 09:00 60 14 117/65 97 07/15/17 08:08 14 97 07/15/17 08:07 96.8 F L 07/15/17 08:00 60 14 116/62 97 General: Other (intubated/sedated) HEENT: Atraumatic, Normocephaly Cardiac: Reg Rate and Rhythm, Normal S1 and S2 Lungs: Normal Breath Sounds Neuro: Other (intubated/sedated) Abdomen: Soft Skin: No rashes noted on visualized skin Musculoskeletal: No Chest Wall Tenderness Extremities: Other (extremities cool, petechiae noted to bilateral feet L>R) Results 07/15/17 03:00 07/15/17 03:00 Lab Results 07/14/17 07/14/17 07/15/17 12:44 18:02 00:30 WBC Hgb Hct Plt Count APTT 40.7 H D 53.5 H Sodium Potassium Chloride Carbon Dioxide BUN Creatinine Glucose Calcium Total Bilirubin AST ALT Alkaline Phosphatase Troponin I 1.10 H* 07/15/17 07/15/17 07/15/17 03:00 03:00 08:27 WBC 12.4 H Hgb 13.1 Hct 39.6 Plt Count 141 D APTT 79.9 H Sodium 138 Potassium 3.8 Chloride 101 Carbon Dioxide 26 BUN 41 H Creatinine 2.05 H Glucose 201 H Calcium 8.1 L Total Bilirubin 0.5 AST 21 ALT 14 Alkaline Phosphatase 95 Troponin I Active Medications Albuterol/Ipratropium (Duoneb) 3 ml IH [id number] SANJUANITA Stop: 01/13/18 04:01 Last Admin: 07/15/17 09:57 Dose: 3 ml Artificial Tears (Lacri-Lube) 1 appl BOTH EYES Q4HR SANJUANITA PRN Reason: Protocol Stop: 01/14/18 12:01 Artificial Tears (Lacri-Lube) 1 appl BOTH EYES Q2HR PRN; Protocol PRN Reason: Dry Eyes Stop: 01/14/18 10:55 Aspirin (Aspirin) 325 mg GTUBE DAILY SANJUANITA Stop: 01/13/18 09:01 Last Admin: 07/15/17 08:33 Dose: 325 mg Chlorhexidine Gluconate (Chlorhexidine Rinse) 15 ml MM BID SANJUANITA Stop: 01/14/18 21:01 Dextrose/Water (Dextrose 50% (Syg)) 25 ml IVP AD PRN PRN Reason: Hypoglycemia Stop: 01/14/18 10:56 Furosemide (Lasix) 40 mg IVP BIDDIURETIC SANJUANITA Stop: 01/13/18 08:01 Last Admin: 07/14/17 07:19 Dose: 40 mg Glucagon (Glucagen) 1 mg IM ONCE PRN PRN Reason: Hypoglycemia Stop: 01/14/18 10:56 Glucose (Gluctose) 15 gm PO ONCE PRN PRN Reason: Hypoglycemia Stop: 01/14/18 10:56 Glucose (Gluctose) 30 gm PO ONCE PRN PRN Reason: Hypoglycemia Stop: 01/14/18 10:56 Heparin Sodium (Porcine) (Heparin) 3,900 unit 60 unit/kg (3900 unit) IVP Q6HR PRN PRN Reason: SEE COMMENTS Stop: 01/13/18 02:38 Heparin Sodium (Porcine) (Heparin) 2,000 unit 30 unit/kg (2000 unit) IVP Q6H PRN PRN Reason: SEE COMMENTS Stop: 01/13/18 02:38 Ceftriaxone Sodium 1,000 mg/ (Sterile Water) 10 mls @ 600 mls/hr IVP DAILY SANJUANITA Stop: 01/13/18 09:01 Last Infusion: 07/15/17 08:35 Dose: Infused Fentanyl Citrate 1,000 mcg/ (Sodium Chloride) 100 mls @ 5 mls/hr IVC CONT SANJUANITA; 50 MCG/HR PRN Reason: Protocol Stop: 01/13/18 01:01 Last Admin: 07/15/17 10:32 Dose: 100 mcg/hr, 10 mls/hr Heparin Sodium/Dextrose (Heparin 25,000 Unit/500 Ml D5w) 25,000 unit in 500 mls @ 15.624 mls/hr IVC .Q24H SANJUANITA; 12 UNIT/KG/HR PRN Reason: Protocol Stop: 01/13/18 02:46 Last Titration: 07/15/17 09:08 Dose: 15 unit/kg/hr, 19.53 mls/hr Dopamine HCl/Dextrose (Dopamine Premix 400mg/250ml) 400 mg in 250 mls @ 6.103 mls/hr IVC .Q24H SANJUANITA; 2.5 MCG/KG/MIN PRN Reason: Protocol Stop: 01/13/18 14:01 Last Admin: 07/14/17 16:58 Dose: Not Given Norepinephrine Bitartrate 4 mg (/ Dextrose) 254 mls @ 30.48 mls/hr IVC CONT SANJUANITA ; 8 MCG/MIN PRN Reason: Protocol Stop: 01/13/18 16:31 Last Titration: 07/15/17 07:00 Dose: 3 mcg/min, 11.43 mls/hr Propofol (Diprivan) 1,000 mg in 100 mls @ 1.953 mls/hr IVC .Q24H SANJUANITA; 5 MCG/KG/ MIN PRN Reason: Protocol Stop: 01/14/18 09:16 Last Admin: 07/15/17 09:28 Dose: 10 mcg/kg/min, 3.906 mls/hr Dextrose (Dextrose 5%) 1,000 mls @ 100 mls/hr IVC .Q10H PRN PRN Reason: HYPOGLYCEMIA Stop: 01/14/18 10:56 Insulin Human Lispro (Humalog) 0 units SQ Q4HR SANJUANITA PRN Reason: Protocol Stop: 01/14/18 12:01 Methylprednisolone (Solu-Medrol) 40 mg IVP Q8HR SANJUANITA Stop: 01/14/18 16:01 Naloxone HCl (Narcan) 0.4 mg IVP Q2MIN PRN PRN Reason: SEE COMMENTS Stop: 01/13/18 00:45 Pantoprazole Sodium (Protonix) 40 mg IVP DAILY SANJUANITA Stop: 01/15/18 09:01 Rosuvastatin Calcium (Crestor) 40 mg PO HS SANJUANITA Stop: 01/13/18 21:01 Last Admin: 07/14/17 20:44 Dose: 40 mg - Imaging and Cardiology Echo: report reviewed Cardiac cath: report reviewed Other Results: 12 hour tele: avg HR=64 SR. - EKG Interpretation EKG results cardiology: personally reviewed - VTE Documentation of Mechanical Device: Intermittent pneumatic compression device Consult Discharge Plan - Plan Referrals: Brad Collins DO [Primary Care Provider] -
[2017-07-15] MEDS: Insulin LISPRO 300 UNITS/3 ML VIAL SQ SCH ×3 (12:36→20:18)
[2017-07-15] MEDS: Lacri-Lube 3.5 GM TUBE BOTH EYES SCH ×3 (12:37→20:19)
[2017-07-15] MEDS: Heparin 25,000 UNIT/500 ML D5W 25,000 UNIT/500 ML BAG IVC SCH (13:03)
[2017-07-15] MEDS: Norepinephrine 4 MG in D5% in Water 250 ML IVC SCH (13:06)
[2017-07-15] MEDS: MethylPREDNISolone 40 MG/ML VIAL IVP SCH (17:50)
[2017-07-15] MEDS: Chlorhexidine Rinse 15 ML MOUTHWASH MM SCH (21:53)
[2017-07-16] MEDS: MethylPREDNISolone 40 MG/ML VIAL IVP SCH ×4 (00:57→23:39)
[2017-07-16] MEDS: Insulin LISPRO 300 UNITS/3 ML VIAL SQ SCH ×7 (00:58→23:42)
[2017-07-16] MEDS: Lacri-Lube 3.5 GM TUBE BOTH EYES SCH ×7 (00:59→23:39)
[2017-07-16] MEDS: Ipratropium/Albuterol Neb 3 ML IH SCH ×4 (03:43→21:55)
[2017-07-16 04:24] LABS: Hematocrit 35.5 % (37.5-50.1); Hemoglobin 11.8 g/dL (12.9-16.9); Immature Granulocytes % 0.6 % (0-4); Lymphocytes # 0.4 K/mcL (0.6-4.6); Lymphocytes % 3.8 %; Mean Corpuscular HGB Conc 33.2 g/dL (31.6-35.5); Mean Corpuscular Hemoglobin 29.6 pg (28.0-33.3); Mean Corpuscular Volume 89.2 fL (83.0-100.0); Mean Platelet Volume 11.6 fL (9.4-12.4); Monocytes # 0.3 K/mcL (0.0-1.3); Monocytes % 3.2 %; Neutrophils # 9.6 K/mcL (1.6-8.9); Platelet Count 105 K/mcL (140-400); Red Blood Count 3.98 M/mcL (4.19-5.50); Red Cell Distribution Width 15.9 % (11.5-14.5); Segmented Neutrophils % 92.4 %
[2017-07-16 04:31] LABS: Calcium 8.1 mg/dL (8.6-10.3); Potassium 3.7 mEq/L (3.5-5.1)
[2017-07-16 04:34] LABS: Troponin I 0.38 ng/mL (< 0.04)
[2017-07-16 04:38] LABS: ABG Base Excess 4 mEq/L (-2 to 3); ABG HCO3 30 mEq/L (21-27); ABG Oxygen Saturation 95 % (95-98); ABG PCO2 50 mmHg (35-45); ABG PH 7.38 pH Units (7.32-7.45); ABG PO2 77 mmHg (85-104); ABG TCO2 32 mEq/L (20-26); Blood Gas Modality VC; Blood Gas PEEP 8 cm H2O; Blood Gas Respiration Rate 14; Blood Gas VT 450 cc
--- NOTE | 2017-07-16 07:39 | Pulmonology Progress Note ---
<PawanSarahsarita M - Last Filed: 07/16/17 15:22> Date of Encounter: 07/16/17 Objective PUL Vital signs: Last Vital Signs Temp 98 F 07/16/17 04:58 Pulse 124 07/16/17 06:00 Resp 18 07/16/17 06:45 BP 114/68 07/16/17 06:45 Pulse Ox 96 07/16/17 06:45 Ventilator Settings Ventilator Settings: Ventilator Settings, Last 8 Hours Ventilator Mode A/C Ventilator Mode A/C Ventilator Mode VC+ Ventilator Mode A/C Ventilator Mode A/C Ventilator Mode A/C Ventilator Mode A/C Ventilator Mode A/C Ventilator Tidal Volume 450 Setting Ventilator Tidal Volume 450 Setting Ventilator Tidal Volume 450 Setting Ventilator Tidal Volume 450 Setting Ventilator Tidal Volume 450 Setting Ventilator Tidal Volume 450 Setting Ventilator Tidal Volume 450 Setting Ventilator Tidal Volume 450 Setting Ventilator Tidal Volume 450 Setting Ventilator Tidal Volume 450 Setting Ventilator Tidal Volume 450 Setting Ventilator Tidal Volume 450 Setting Ventilator Respiratory Rate 14 Setting Ventilator Respiratory Rate 14 Setting Ventilator Respiratory Rate 14 Setting Ventilator Respiratory Rate 14 Setting Ventilator Respiratory Rate 14 Setting Ventilator Respiratory Rate 14 Setting Ventilator Respiratory Rate 14 Setting Ventilator Respiratory Rate 14 Setting Ventilator Respiratory Rate 14 Setting Ventilator Respiratory Rate 14 Setting Ventilator Respiratory Rate 14 Setting Ventilator Respiratory Rate 14 Setting Ventilator Respiratory Rate 14 Setting Actual Respiratory Rate 18 Actual Respiratory Rate 19 Actual Respiratory Rate 14 Actual Respiratory Rate 14 Actual Respiratory Rate 14 Actual Respiratory Rate 14 Actual Respiratory Rate 21 Actual Respiratory Rate 16 Actual Respiratory Rate 21 Actual Respiratory Rate 14 Actual Respiratory Rate 14 Actual Respiratory Rate 14 Positive End Expiratory 8 Pressure Positive End Expiratory 8 Pressure Positive End Expiratory 8 Pressure Positive End Expiratory 8 Pressure Positive End Expiratory 8 Pressure Positive End Expiratory 8 Pressure Positive End Expiratory 8 Pressure Positive End Expiratory 8 Pressure Positive End Expiratory 8 Pressure Positive End Expiratory 8 Pressure Positive End Expiratory 8 Pressure Positive End Expiratory 8 Pressure Positive End Expiratory 8 Pressure Peak Inspiratory Airway 18 Pressure Peak Inspiratory Airway 29 Pressure Peak Inspiratory Airway 25 Pressure Peak Inspiratory Airway 28 Pressure Peak Inspiratory Airway 27 Pressure Peak Inspiratory Airway 24 Pressure Peak Inspiratory Airway 24 Pressure Peak Inspiratory Airway 23 Pressure Peak Inspiratory Airway 26 Pressure Peak Inspiratory Airway 27 Pressure Peak Inspiratory Airway 26 Pressure Peak Inspiratory Airway 26 Pressure Results - Laboratory Findings CBC and BMP: 07/16/17 03:57 07/16/17 03:57 ABG ABG pH 7.38 pH Units (7.32-7.45) 07/16/17 04:34 ABG pCO2 50 mmHg (35-45) H 07/16/17 04:34 ABG pO2 77 mmHg (85-104) L 07/16/17 04:34 ABG O2 Saturation 95 % (95-98) 07/16/17 04:34 PT/INR, D-dimer PT 13.3 Seconds (9.4-12.1) H 07/14/17 01:20 Abnormal lab findings: Abnormal lab results RBC 3.98 M/mcL (4.19-5.50) L 07/16/17 03:57 Hgb 11.8 g/dL (12.9-16.9) L 07/16/17 03:57 Hct 35.5 % (37.5-50.1) L 07/16/17 03:57 RDW 15.9 % (11.5-14.5) H 07/16/17 03:57 Plt Count 105 K/mcL (140-400) L 07/16/17 03:57 Neutrophils # 9.6 K/mcL (1.6-8.9) H 07/16/17 03:57 Lymphocytes # 0.4 K/mcL (0.6-4.6) L 07/16/17 03:57 PT 13.3 Seconds (9.4-12.1) H 07/14/17 01:20 APTT 60.9 Seconds (26.0-36.0) H 07/15/17 15:54 ABG pCO2 50 mmHg (35-45) H 07/16/17 04:34 ABG pO2 77 mmHg (85-104) L 07/16/17 04:34 ABG HCO3 30 mEq/L (21-27) H 07/16/17 04:34 ABG Total CO2 32 mEq/L (20-26) H 07/16/17 04:34 ABG Base Excess 4 mEq/L (-2 to 3) H 07/16/17 04:34 BUN 50 mg/dL (8-23) H 07/16/17 03:57 Creatinine 1.82 mg/dL (0.70-1.30) H 07/16/17 03:57 Est GFR ( Amer) 44 (> 60) L 07/16/17 03:57 Est GFR (Non-Af Amer) 37 (> 60) L 07/16/17 03:57 BUN/Creatinine Ratio 27 (6-26) H 07/16/17 03:57 Glucose 157 mg/dL (70-105) H 07/16/17 03:57 POC Glucose 149 mg/dL (70-99) H 07/15/17 23:48 Calculated Osmolality 309 (280-300) H 07/16/17 03:57 Calcium 8.1 mg/dL (8.6-10.3) L 07/16/17 03:57 Troponin I 0.38 ng/mL (< 0.04) H* 07/16/17 03:57 B-Natriuretic Peptide > 5000 pg/mL (Less than 100) H 07/14/17 07:15 Serum Total Protein 6.0 g/dL (6.4-8.9) L 07/15/17 03:00 Albumin 3.1 g/dL (3.5-5.7) L 07/15/17 03:00 - Microbiology Findings Microbiology Findings: Microbiology, Last 48 Hours 07/14/17 14:09 Blood Culture - Preliminary Peripheral Venipuncture No growth. 07/14/17 14:09 Blood Culture - Preliminary Peripheral Venipuncture No growth. 07/14/17 20:00 Sputum Culture - Final Sputum 07/14/17 02:46 Legionella Antigen - Final Urine,Clean Catch Streptococcus pneumoniae Antigen (M - Final - Clinical Findings Intake & Output: Intake & Output 07/15/17 07/15/17 07/16/17 15:59 23:59 07:59 Intake Total 487 / 487 303 / 303 375.0 / 375.0 Output Total 100 / 100 350 / 350 550 / 550 Balance 387 / 387 -47 / -47 -175.0 / -175.0 Weight 66.9 kg Consult Discharge Plan - Plan Referrals: Brad Collins DO [Primary Care Provider] - - Attending Attestation I examined this patient and my medical decision-making was reviewed with the Resident Physician. I agree with the documented findings, disposition and treatment plan as described except to the extent set forth below. Patient seen and examined. Labs, radiology, chart personally reviewed. 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 Will monitor in ICU for next 24 hours since his underlying cardiovascular disease can be a problem for the patient Cardiovascular: stable and cardiology to evaluate patient GI: Nutrition per dietary and GI prophylaxis per routine Heme: DVT prophylaxis per routine Renal; urine out put and renal funtion reviewed Endorcine: blood glucose is monitored Lines: all lines checked and no evidence of infections Skin: skin care to prevent pressure ulcers per nursing routine care Possible transfer if remains stable in next 24 hours <Nando Gan - Last Filed: 07/16/17 17:37> Date of Encounter: 07/16/17 Time of Encounter: 13:59 Assessment and Plan (1) Acute respiratory failure with hypoxia and hypercapnia Current Visit: Yes Status: Acute Acute risk for urgent failure with hypoxia and hypercapnia intubated and on ventilator Likely cause of distress is acute pulmonary edema secondary to heart failure/ and STEMI. Chest x-ray shows diffuse opacifications consistent with flash pulmonary edema this is the same as previous study. ABG 7.12/80/55/26/75 on 100% NRB 7.35/48/94/27/97 on 60% FIO2 (PRVC) 7.35/54/50/29/83 on 50% assist control Suspect this is in response to cardiac stress from NSTEMI. Stat TTE showed left ventricular EF of 30% with aortic stenosis previous one done October 2016 showed 35-40% EF with aortic stenosis. Cardiology saw the patient said they are not a heart catheter candidate at this time due to the creatinine. Also do not think the patient is stable enough for a TAVR we will await their further recommendations. Patient's antibiotics have been D escalated to Rocephin only he is being diuresed with 40 mg IV Lasix daily. Patient is no longer on a sedation is currently not on the ventilator as he did pass CPAP and extubated. Troponins arm was back to 0. Patient has no extubated feeling much better. Patient is not seeing me in respiratory distress this time we will plan on discharging or transferring the patient to another floor pending cardiology's recommendations for further treatment for his worsening ejection fraction as well as aortic stenosis. (2) NSTEMI (non-ST elevated myocardial infarction) Current Visit: Yes Status: Acute Elevated troponins were trending up at (0.03-0.08-1.23-1.62) but now are going down at 0.10. Flash pulmonary edema is seen on chest x-ray EKG shows ST depressions in the inferolateral leads which is new. TTE today showed worsening EF of 30% as well as aortic stenosis. Cardiology has seen the patient. They were given a recommend a dobutamine stress test to recheck the EF and aortic stenosis but due to patient's mental status they felt they will wait to see if it gets better tomorrow. There is still following the patient. Patient is on heparin Patient is no longer on norepinephrine pressor blood pressure is stable at this time. Patient did pass a swallow study so we will restart his home metoprolol XL dose. Patient was tachycardic here so we will give the first metoprolol dose today and hold until tomorrow in case he goes through stress test. (3) CHF (congestive heart failure) Current Visit: Yes Status: Acute Flash pulmonary edema on chest x-ray BNP greater than 5000. TTE 10/2016 LVEF 35-40% Moderate global LV systolic dysfunction Apparent Severe Aortic stenosis [facility] 02/24 Moderate atherosclerotic CAD Prior stent to proximal circumflex with 100% stenosis Moderate RCA disease which was not stented TTE 05/14/17 LVEF 30% Severe global LV systolic dysfunction Moderate concentric left ventricular hypertrophy Moderate to severe aortic stenosis Continue giving Lasix IV for aggressive diuresis strict I's and O's and daily weights. Await further cardiology recommendations Qualifiers: Heart failure type: systolic Heart failure chronicity: acute on chronic Qualified Code(s): I50.23 - Acute on chronic systolic (congestive) heart failure (4) COPD exacerbation Current Visit: Yes Status: Acute COPD suspected exacerbation most likely secondary to flash bony edema due to decreased cardiac function. IV Solu-Medrol was being being given at 60 mg every 6 hours we are changing that to 40 mg every 8. Patient antibiotics were Descalated from Rocephin and Levaquin to Rocephin only 2 g daily. (5) Hyperglycemia due to type 2 diabetes mellitus Current Visit: Yes Status: Acute Patient did have elevated blood glucose of 201 this could be secondary due to the steroids. We will start low dose insulin drip every 4 hours to stabilize his blood sugars. Qualifiers: Qualified Code(s): E11.65 - Type 2 diabetes mellitus with hyperglycemia (6) DVT prophylaxis Current Visit: Yes Status: Acute On heparin drip. Subjective Principal diagnosis: Respiratory failure/HCAP Interval history: No new events overnight patient was intubated throughout the night. We did try CPAP this morning and he did well with that and we x-rayed him and patient is now alert and oriented and able to follow commands at this time. He is able to answer all questions. Patient states that he would like to go home tomorrow by 4:00 as he is feeling much better. Objective PUL Vital signs: Last Vital Signs Temp 98 F 07/16/17 04:58 Pulse 124 07/16/17 06:00 Resp 18 07/16/17 06:45 BP 114/68 07/16/17 06:45 Pulse Ox 96 07/16/17 06:45 General appearance: no acute distress, alert Eyes: nonicteric ENT: oropharynx moist Neck: supple Effort: normal Auscultation: bilateral: clear Cardiovascular: regular rate and rhythm, murmur noted (Holosystolic murmur appreciated in the right sternal border. ) Gastrointestinal: normoactive bowel sounds, non-distended Integumentary: normal Extremities: no cyanosis, no edema, no clubbing Musculoskeletal: no deformities, ROM normal normal mental status, non-focal exam, pupils equal and round, motor strength normal and symmetric Ventilator Settings Ventilator Settings: Ventilator Settings, Last 8 Hours Ventilator Mode A/C Ventilator Mode A/C Ventilator Mode VC+ Ventilator Mode A/C Ventilator Mode A/C Ventilator Mode A/C Ventilator Mode A/C Ventilator Mode A/C Ventilator Tidal Volume 450 Setting Ventilator Tidal Volume 450 Setting Ventilator Tidal Volume 450 Setting Ventilator Tidal Volume 450 Setting Ventilator Tidal Volume 450 Setting Ventilator Tidal Volume 450 Setting Ventilator Tidal Volume 450 Setting Ventilator Tidal Volume 450 Setting Ventilator Tidal Volume 450 Setting Ventilator Tidal Volume 450 Setting Ventilator Tidal Volume 450 Setting Ventilator Tidal Volume 450 Setting Ventilator Respiratory Rate 14 Setting Ventilator Respiratory Rate 14 Setting Ventilator Respiratory Rate 14 Setting Ventilator Respiratory Rate 14 Setting Ventilator Respiratory Rate 14 Setting Ventilator Respiratory Rate 14 Setting Ventilator Respiratory Rate 14 Setting Ventilator Respiratory Rate 14 Setting Ventilator Respiratory Rate 14 Setting Ventilator Respiratory Rate 14 Setting Ventilator Respiratory Rate 14 Setting Ventilator Respiratory Rate 14 Setting Ventilator Respiratory Rate 14 Setting Actual Respiratory Rate 18 Actual Respiratory Rate 19 Actual Respiratory Rate 14 Actual Respiratory Rate 14 Actual Respiratory Rate 14 Actual Respiratory Rate 14 Actual Respiratory Rate 21 Actual Respiratory Rate 16 Actual Respiratory Rate 21 Actual Respiratory Rate 14 Actual Respiratory Rate 14 Actual Respiratory Rate 14 Positive End Expiratory 8 Pressure Positive End Expiratory 8 Pressure Positive End Expiratory 8 Pressure Positive End Expiratory 8 Pressure Positive End Expiratory 8 Pressure Positive End Expiratory 8 Pressure Positive End Expiratory 8 Pressure Positive End Expiratory 8 Pressure Positive End Expiratory 8 Pressure Positive End Expiratory 8 Pressure Positive End Expiratory 8 Pressure Positive End Expiratory 8 Pressure Positive End Expiratory 8 Pressure Peak Inspiratory Airway 18 Pressure Peak Inspiratory Airway 29 Pressure Peak Inspiratory Airway 25 Pressure Peak Inspiratory Airway 28 Pressure Peak Inspiratory Airway 27 Pressure Peak Inspiratory Airway 24 Pressure Peak Inspiratory Airway 24 Pressure Peak Inspiratory Airway 23 Pressure Peak Inspiratory Airway 26 Pressure Peak Inspiratory Airway 27 Pressure Peak Inspiratory Airway 26 Pressure Peak Inspiratory Airway 26 Pressure Results - Laboratory Findings CBC and BMP: 07/16/17 03:57 07/16/17 03:57 ABG ABG pH 7.38 pH Units (7.32-7.45) 07/16/17 04:34 ABG pCO2 50 mmHg (35-45) H 07/16/17 04:34 ABG pO2 77 mmHg (85-104) L 07/16/17 04:34 ABG O2 Saturation 95 % (95-98) 07/16/17 04:34 PT/INR, D-dimer PT 13.3 Seconds (9.4-12.1) H 07/14/17 01:20 Abnormal lab findings: Abnormal lab results RBC 3.98 M/mcL (4.19-5.50) L 07/16/17 03:57 Hgb 11.8 g/dL (12.9-16.9) L 07/16/17 03:57 Hct 35.5 % (37.5-50.1) L 07/16/17 03:57 RDW 15.9 % (11.5-14.5) H 07/16/17 03:57 Plt Count 105 K/mcL (140-400) L 07/16/17 03:57 Neutrophils # 9.6 K/mcL (1.6-8.9) H 07/16/17 03:57 Lymphocytes # 0.4 K/mcL (0.6-4.6) L 07/16/17 03:57 PT 13.3 Seconds (9.4-12.1) H 07/14/17 01:20 APTT 60.9 Seconds (26.0-36.0) H 07/15/17 15:54 ABG pCO2 50 mmHg (35-45) H 07/16/17 04:34 ABG pO2 77 mmHg (85-104) L 07/16/17 04:34 ABG HCO3 30 mEq/L (21-27) H 07/16/17 04:34 ABG Total CO2 32 mEq/L (20-26) H 07/16/17 04:34 ABG Base Excess 4 mEq/L (-2 to 3) H 07/16/17 04:34 BUN 50 mg/dL (8-23) H 07/16/17 03:57 Creatinine 1.82 mg/dL (0.70-1.30) H 07/16/17 03:57 Est GFR ( Amer) 44 (> 60) L 07/16/17 03:57 Est GFR (Non-Af Amer) 37 (> 60) L 07/16/17 03:57 BUN/Creatinine Ratio 27 (6-26) H 07/16/17 03:57 Glucose 157 mg/dL (70-105) H 07/16/17 03:57 POC Glucose 149 mg/dL (70-99) H 07/15/17 23:48 Calculated Osmolality 309 (280-300) H 07/16/17 03:57 Calcium 8.1 mg/dL (8.6-10.3) L 07/16/17 03:57 Troponin I 0.38 ng/mL (< 0.04) H* 07/16/17 03:57 B-Natriuretic Peptide > 5000 pg/mL (Less than 100) H 07/14/17 07:15 Serum Total Protein 6.0 g/dL (6.4-8.9) L 07/15/17 03:00 Albumin 3.1 g/dL (3.5-5.7) L 07/15/17 03:00 - Microbiology Findings Microbiology Findings: Microbiology, Last 48 Hours 07/14/17 14:09 Blood Culture - Preliminary Peripheral Venipuncture No growth. 07/14/17 14:09 Blood Culture - Preliminary Peripheral Venipuncture No growth. 07/14/17 20:00 Sputum Culture - Final Sputum 07/14/17 02:46 Legionella Antigen - Final Urine,Clean Catch Streptococcus pneumoniae Antigen (M - Final - Diagnostic Findings Chest x-ray: image reviewed - Clinical Findings Intake & Output: Intake & Output 07/15/17 07/15/17 07/16/17 15:59 23:59 07:59 Intake Total 487 / 487 303 / 303 375.0 / 375.0 Output Total 100 / 100 350 / 350 550 / 550 Balance 387 / 387 -47 / -47 -175.0 / -175.0 Weight 66.9 kg - VTE Documentation of Mechanical Device: Intermittent pneumatic compression device
[2017-07-16] MEDS: Chlorhexidine Rinse 15 ML MOUTHWASH MM SCH ×2 (08:03→20:41)
[2017-07-16] MEDS: Pantoprazole 40 MG VIAL IVP SCH (08:03)
[2017-07-16] MEDS: cefTRIAXone 1,000 MG in Water for inj. (sterile) 20 ML 10 ML IVP SCH (08:03)
[2017-07-16] MEDS: Aspirin 325 MG TABLET GTUBE SCH (11:32)
[2017-07-16] MEDS ORDERED: Metoprolol XL (24 HR) Succ 25 MG TAB.ER.24H PO SCH (15:00)
--- NOTE | 2017-07-16 15:43 | Cardiology Progress Note ---
Date of Encounter: 07/16/17 Time of Encounter: 15:40 Assessment and Plan (1) CHF (congestive heart failure) Current Visit: Yes Status: Acute Acute on chronic CHFrEF , known history of EF 35-40%. Also has known moderate- severe in 2017. [facility] 02/2017 demonstrated moderate CA, known occluded pLCx (2014), and mild- moderate progressive RCA disease (60% mRCA, 65% dRCA). TTE this admit- LVEF 30%. Severe global and regional LV systolic dysfunction - LV wall motion appears similar when compared to Echo 10/2016. Moderate concentric left ventricular hypertrophy. Definity echo contrast was not used - no identifiable LV thrombus. Normal right ventricular structure and function. Mild mitral regurgitation. Moderate to severe aortic stenosis. Mild tricuspid regurgitation. Pleural effusion is present. No pulmonary hypertension by TR gradient - 14 mmHg, may not be well obtained. BNP greater than 5000. CXR- ARDS. Presented with acute respiratory hypoxic and hypercapnic respiratory failure requiring intubation. Extubated early this morning. Respiratory distress felt to be secondary to ARDS, flash pulmonary edema. Now off pressor support and beta arthur is being restarted. Noted to have sinus tachycardia. May be respiratory driven. Respiration labored after extubation. Cautious diuresis. Creatinine mildly improved today. Net negative 328 ml. Resume BB/ no ACEi due to ANNA. Strict I&O's, daily weights, Na/fluid restricted diet. Qualifiers: Heart failure type: systolic Heart failure chronicity: acute on chronic Qualified Code(s): I50.23 - Acute on chronic systolic (congestive) heart failure (2) Aortic stenosis Current Visit: Yes Status: Acute Hx of moderate-severe . NICHELLE to further evaluate 2016 demonstrated not severe , however maybe secondary to reduced stroke volume. CHRISTIANO 1.87 cm2, PV 2.75 m/s, MG=15 mmHg. Repeat TTE shows LVEF 30% with severe global and RWMA ( no significant change from previous) moderate cLVH, mild MR, moderate to severe . Discussed with Dr. Mcallister; recommend dobutamine stress echocardiogram to further evaluate severity of when hemodynamically stable and possibly in out-pt setting. Restarting beta arthur today for tachycardia. Patient also with labored respirations s/p extubation and confused. Continue to monitor. Qualifiers: Cardiac valve disease etiology: etiology unspecified Qualified Code(s): I35.0 - Nonrheumatic aortic (valve) stenosis (3) Elevated troponin Current Visit: Yes Status: Acute Peak troponin 1.62 in the setting of acute respiratory failure; NSTEMI type I vs. II. [facility] 02/2017: known occluded LCx stent; otherwise non-obstructive CAD. Repeat TTE shows reduced LVEF 30% (EF 35-40%) with similar wall motion abnormality. Not a candidate for ischemic evaluation at present given ANNA. Scr mildly improved. Patient with labored respirations and confusion today. Can consider [facility] pending hospital course. Continue asa, statin, BB. Will continue to follow. Discussion w patient/family: The assessment and plan as outlined above was discussed with the patient and/or family members who expressed understanding and agreement. All questions were answered. Thank you for involving us in the care of your patient. Please call with any questions. Subjective Principal diagnosis: aortic stenosis Interval history: Mr. Castillo was extubated this morning. He is confused on my exam. Denies pain. Objective Vital Signs, Last 4 Hours Temp Pulse Resp BP Pulse Ox 07/16/17 14:20 111 20 140/82 95 07/16/17 13:06 115 20 134/82 95 07/16/17 12:20 113 20 137/80 95 07/16/17 12:00 97.6 F General: Conversant, No Apparent Distress, Other (Confused to time and place. Cannot follow conversation.) HEENT: Atraumatic, Normocephaly, Mucus Membranes Moist Neck: No JVD, Normal carotid pulses Cardiac: Reg Rate and Rhythm, Normal S1 and S2, No Murmur, Other (sinus tachycardia on telemetry. ) Lungs: Other (lung sounds diminished) Neuro: Alert and responsive, No focal deficits noted Abdomen: Soft, Non-Tender Skin: No rashes noted on visualized skin, Other (Warren appearing) Musculoskeletal: No Chest Wall Tenderness Extremities: No Clubbing, No Cyanosis, No Edema, Normal Pulses Results 07/16/17 03:57 07/16/17 03:57 Lab Results 07/15/17 07/16/17 07/16/17 15:54 03:57 03:57 WBC 10.3 Hgb 11.8 L Hct 35.5 L Plt Count 105 L APTT 60.9 H Sodium 141 Potassium 3.7 Chloride 103 Carbon Dioxide 26 BUN 50 H Creatinine 1.82 H Glucose 157 H Calcium 8.1 L Troponin I 0.38 H* - Imaging and Cardiology Echo: report reviewed - EKG Interpretation EKG results cardiology: personally reviewed - VTE Documentation of Mechanical Device: Intermittent pneumatic compression device Consult Discharge Plan - Plan Referrals: Brad Collins DO [Primary Care Provider] -
--- NOTE | 2017-07-16 16:59 | Electrocardiograph Report ---
[address] [place] [address] Test Date: 2017-07-14 Pat Name: Oracio Castillo Department: [id number] Room: 06 Gender: M Safety Intern: : 1945 Requested By: Summer Blake Order Number: [id number] Reading MD: Gina Umaña Measurements Intervals [place] Rate: 71 P: 60 VA: 178 QRS: -1 QRSD: 101 T: 171 QT: 432 QTc: 455 Interpretive Statements SINUS RHYTHM LEFT ATRIAL ENLARGEMENT LEFT VENTRICULAR HYPERTROPHY AND ST-T CHANGE POSSIBLE SEPTAL MYOCARDIAL INFARCTION, PROBABLY RECENT ACUTE AL Electronically Signed On 07-16-2017 16:57:33 EDT by Gina Umaña
[2017-07-16] MEDS: Heparin 25,000 UNIT/500 ML D5W 25,000 UNIT/500 ML BAG IVC SCH (17:08)
[2017-07-16] MEDS: Norepinephrine 4 MG in D5% in Water 250 ML IVC SCH (17:08)
[2017-07-17] MEDS: Ipratropium/Albuterol Neb 3 ML IH SCH ×4 (03:47→22:25)
[2017-07-17] MEDS: Lacri-Lube 3.5 GM TUBE BOTH EYES SCH ×2 (04:00→07:58)
[2017-07-17] MEDS: Insulin LISPRO 300 UNITS/3 ML VIAL SQ SCH ×6 (04:00→22:54)
[2017-07-17 05:44] LABS: Hematocrit 36.6 % (37.5-50.1); Hemoglobin 12.5 g/dL (12.9-16.9); Lymphocytes # 0.6 K/mcL (0.6-4.6); Lymphocytes % 5.6 %; Mean Corpuscular HGB Conc 34.2 g/dL (31.6-35.5); Mean Corpuscular Hemoglobin 30.8 pg (28.0-33.3); Mean Corpuscular Volume 90.1 fL (83.0-100.0); Mean Platelet Volume 11.6 fL (9.4-12.4); Monocytes # 0.4 K/mcL (0.0-1.3); Neutrophils # 9.7 K/mcL (1.6-8.9); Platelet Count 139 K/mcL (140-400); Red Blood Count 4.06 M/mcL (4.19-5.50); Segmented Neutrophils % 89.4 %
[2017-07-17 05:58] LABS: BUN/Creatinine Ratio 34 (6-26); Blood Urea Nitrogen 48 mg/dL (8-23); Carbon Dioxide 29 mEq/L (23-29); Chloride 103 mEq/L (98-107); Glucose 154 mg/dL (70-105); Osmolality,Calculated 306 (280-300); Potassium 3.8 mEq/L (3.5-5.1); Sodium 140 mEq/L (136-145); eGFR For African Americans > 60 (> 60); eGFR For Non-African Americans 50 (> 60)
--- NOTE | 2017-07-17 07:47 | Pulmonology Progress Note ---
<Nando Gan - Last Filed: 07/17/17 11:49> Date of Encounter: 07/17/17 Time of Encounter: 11:49 Assessment and Plan (1) NSTEMI (non-ST elevated myocardial infarction) Current Visit: Yes Status: Acute Elevated troponins were trending up at (0.03-0.08-1.23-1.62) but now are going down at 0.10. Flash pulmonary edema is seen on chest x-ray EKG shows ST depressions in the inferolateral leads which is new. TTE today showed worsening EF of 30% as well as aortic stenosis. Cardiology has seen the patient. They were given a recommend a dobutamine stress test to recheck the EF and aortic stenosis but due to patient's mental status they felt they will wait to see if it gets better tomorrow. There is still following the patient. Stop the heparin on 07/17 Patient is no longer on norepinephrine pressor blood pressure is stable at this time. Patient did pass a swallow study so we will restart his home metoprolol XL dose. Patient was tachycardic here so we will give the first metoprolol dose today. Patient also is mildly hypertensive last night they gave a dose of hydralazine due to him having aortic stenosis we will discontinue the hydralazine not use it. We did give another dose of metoprolol XL today to help with his pressure as well. I also ordered a labetalol IV dose with when necessary orders of greater than 160 systolic. We will hold on lisinopril at this time to allow for creatinine to normalize for heart catheterization blood pressure can be controlled with labetalol and metoprolol Spoke with cardiology today this said they are no longer going to be following the patient they said that they do not do dobutamine stress tests on patient in the ICU and this can be done in an outpatient setting. He said the next best recommendation will be for heart catheterization once the patient's creatinine normalizes. Due to this we are going to transfer the patient to a medical floor to have them trend the creatinine is and then reconsult cardiology for possible heart catheterization (2) Acute respiratory failure with hypoxia and hypercapnia Current Visit: Yes Status: Acute Acute risk for urgent failure with hypoxia and hypercapnia intubated and on ventilator Likely cause of distress is acute pulmonary edema secondary to heart failure/ and STEMI. Chest x-ray shows diffuse opacifications consistent with flash pulmonary edema this is the same as previous study. ABG 7.12/80/55/26/75 on 100% NRB 7.35/48/94/27/97 on 60% FIO2 (PRVC) 7.35/54/50/29/83 on 50% assist control Suspect this is in response to cardiac stress from NSTEMI. Stat TTE showed left ventricular EF of 30% with aortic stenosis previous one done October 2016 showed 35-40% EF with aortic stenosis. Cardiology saw the patient said they are not a heart catheter candidate at this time due to the creatinine. Also do not think the patient is stable enough for a TAVR we will await their further recommendations. Patient's antibiotics have been D escalated to Rocephin only he is being diuresed with 40 mg IV Lasix daily. Patient is no longer on a sedation is currently not on the ventilator as he did pass CPAP and extubated. Patient is extubated at this time and doing well he is in no acute distress at this time. Patient no longer in respiratory distress Plan to transfer the patient to the medical floor for further evaluation and monitoring creatinine for possible heart catheterization (3) CHF (congestive heart failure) Current Visit: Yes Status: Acute Flash pulmonary edema on chest x-ray BNP greater than 5000. TTE 10/2016 LVEF 35-40% Moderate global LV systolic dysfunction Apparent Severe Aortic stenosis [facility] 02/24 Moderate atherosclerotic CAD Prior stent to proximal circumflex with 100% stenosis Moderate RCA disease which was not stented TTE 05/14/17 LVEF 30% Severe global LV systolic dysfunction Moderate concentric left ventricular hypertrophy Moderate to severe aortic stenosis Continue giving Lasix IV for aggressive diuresis strict I's and O's and daily weights. Cardiology not further following recommended heart catheter once creatinine normalizes Qualifiers: Heart failure type: systolic Heart failure chronicity: acute on chronic Qualified Code(s): I50.23 - Acute on chronic systolic (congestive) heart failure (4) COPD exacerbation Current Visit: Yes Status: Acute COPD suspected exacerbation most likely secondary to flash bony edema due to decreased cardiac function. IV Solu-Medrol was being being given at 40 mg every 12 hours Patient antibiotics were Descalated from Rocephin and Levaquin to Rocephin only 2 g daily. (5) Hyperglycemia due to type 2 diabetes mellitus Current Visit: Yes Status: Acute Patient did have elevated blood glucose of 201 this could be secondary due to the steroids. We will start low dose insulin drip every 4 hours to stabilize his blood sugars. Qualifiers: Diabetes mellitus terminal manager insulin use: unspecified skilled nursing insulin use status Qualified Code(s): E11.65 - Type 2 diabetes mellitus with hyperglycemia (6) DVT prophylaxis Current Visit: Yes Status: Acute Heparin subcutaneous 5000 units ordered. Subjective Principal diagnosis: Respiratory failure/HCAP Interval history: No new events overnight patient was extubated yesterday. Patient is alert and oriented able to follow commands. Says he is doing well and is wondering when he is coming be able to go home. Otherwise there are no overnight events. Other than patient did become hypertensive and the night team did order 1 dose of hydralazine which did lower his blood pressure. Objective PUL Vital signs: Last Vital Signs Temp 97.8 F 07/17/17 07:28 Pulse 93 07/17/17 06:00 Resp 22 07/17/17 06:00 BP 152/81 07/17/17 06:00 Pulse Ox 94 07/17/17 06:00 General appearance: no acute distress Eyes: nonicteric ENT: oropharynx moist Neck: supple Effort: normal Auscultation: bilateral: clear Cardiovascular: regular rate and rhythm Gastrointestinal: normoactive bowel sounds, soft, non-tender, non-distended Integumentary: normal Extremities: no cyanosis, no edema, no clubbing Musculoskeletal: no deformities, ROM normal normal mental status, non-focal exam Results - Laboratory Findings CBC and BMP: 07/17/17 03:57 07/17/17 03:57 ABG ABG pH 7.38 pH Units (7.32-7.45) 07/16/17 04:34 ABG pCO2 50 mmHg (35-45) H 07/16/17 04:34 ABG pO2 77 mmHg (85-104) L 07/16/17 04:34 ABG O2 Saturation 95 % (95-98) 07/16/17 04:34 PT/INR, D-dimer PT 13.3 Seconds (9.4-12.1) H 07/14/17 01:20 Abnormal lab findings: Abnormal lab results RBC 4.06 M/mcL (4.19-5.50) L 07/17/17 03:57 Hgb 12.5 g/dL (12.9-16.9) L 07/17/17 03:57 Hct 36.6 % (37.5-50.1) L 07/17/17 03:57 RDW 16.0 % (11.5-14.5) H 07/17/17 03:57 Plt Count 139 K/mcL (140-400) L 07/17/17 03:57 Neutrophils # 9.7 K/mcL (1.6-8.9) H 07/17/17 03:57 PT 13.3 Seconds (9.4-12.1) H 07/14/17 01:20 APTT 61.9 Seconds (26.0-36.0) H 07/17/17 03:57 ABG pCO2 50 mmHg (35-45) H 07/16/17 04:34 ABG pO2 77 mmHg (85-104) L 07/16/17 04:34 ABG HCO3 30 mEq/L (21-27) H 07/16/17 04:34 ABG Total CO2 32 mEq/L (20-26) H 07/16/17 04:34 ABG Base Excess 4 mEq/L (-2 to 3) H 07/16/17 04:34 BUN 48 mg/dL (8-23) H 07/17/17 03:57 Creatinine 1.40 mg/dL (0.70-1.30) H 07/17/17 03:57 Est GFR (Non-Af Amer) 50 (> 60) L 07/17/17 03:57 BUN/Creatinine Ratio 34 (6-26) H 07/17/17 03:57 Glucose 154 mg/dL (70-105) H 07/17/17 03:57 POC Glucose 147 mg/dL (70-99) H 07/16/17 23:35 Calculated Osmolality 306 (280-300) H 07/17/17 03:57 Troponin I 0.38 ng/mL (< 0.04) H* 07/16/17 03:57 B-Natriuretic Peptide > 5000 pg/mL (Less than 100) H 07/14/17 07:15 Serum Total Protein 6.0 g/dL (6.4-8.9) L 07/15/17 03:00 Albumin 3.1 g/dL (3.5-5.7) L 07/15/17 03:00 - Microbiology Findings Microbiology Findings: Microbiology, Last 48 Hours 07/14/17 14:09 Blood Culture - Preliminary Peripheral Venipuncture No growth. 07/14/17 14:09 Blood Culture - Preliminary Peripheral Venipuncture No growth. - Clinical Findings Intake & Output: Intake & Output 07/16/17 07/16/17 07/17/17 15:59 23:59 07:59 Intake Total 440 / 440 Output Total 275 / 275 625 / 625 1300 / 1300 Balance 165 / 165 -625 / -625 -1300 / -1300 Weight 64.3 kg - VTE Documentation of Mechanical Device: Intermittent pneumatic compression device Consult Discharge Plan - Plan Referrals: Brad Collins DO [Primary Care Provider] - <Richardson Villalta - Last Filed: 07/17/17 15:58> Date of Encounter: 07/17/17 Objective PUL Vital signs: Last Vital Signs Temp 97.8 F 07/17/17 07:28 Pulse 80 07/17/17 09:00 Resp 20 07/17/17 09:00 BP 165/86 07/17/17 09:00 Pulse Ox 92 07/17/17 09:00 Results - Laboratory Findings CBC and BMP: 07/17/17 03:57 07/17/17 03:57 ABG ABG pH 7.38 pH Units (7.32-7.45) 07/16/17 04:34 ABG pCO2 50 mmHg (35-45) H 07/16/17 04:34 ABG pO2 77 mmHg (85-104) L 07/16/17 04:34 ABG O2 Saturation 95 % (95-98) 07/16/17 04:34 PT/INR, D-dimer PT 13.3 Seconds (9.4-12.1) H 07/14/17 01:20 Abnormal lab findings: Abnormal lab results RBC 4.06 M/mcL (4.19-5.50) L 07/17/17 03:57 Hgb 12.5 g/dL (12.9-16.9) L 07/17/17 03:57 Hct 36.6 % (37.5-50.1) L 07/17/17 03:57 RDW 16.0 % (11.5-14.5) H 07/17/17 03:57 Plt Count 139 K/mcL (140-400) L 07/17/17 03:57 Neutrophils # 9.7 K/mcL (1.6-8.9) H 07/17/17 03:57 PT 13.3 Seconds (9.4-12.1) H 07/14/17 01:20 APTT 61.9 Seconds (26.0-36.0) H 07/17/17 03:57 ABG pCO2 50 mmHg (35-45) H 07/16/17 04:34 ABG pO2 77 mmHg (85-104) L 07/16/17 04:34 ABG HCO3 30 mEq/L (21-27) H 07/16/17 04:34 ABG Total CO2 32 mEq/L (20-26) H 07/16/17 04:34 ABG Base Excess 4 mEq/L (-2 to 3) H 07/16/17 04:34 BUN 48 mg/dL (8-23) H 07/17/17 03:57 Creatinine 1.40 mg/dL (0.70-1.30) H 07/17/17 03:57 Est GFR (Non-Af Amer) 50 (> 60) L 07/17/17 03:57 BUN/Creatinine Ratio 34 (6-26) H 07/17/17 03:57 Glucose 154 mg/dL (70-105) H 07/17/17 03:57 POC Glucose 147 mg/dL (70-99) H 07/16/17 23:35 Calculated Osmolality 306 (280-300) H 07/17/17 03:57 Troponin I 0.38 ng/mL (< 0.04) H* 07/16/17 03:57 B-Natriuretic Peptide > 5000 pg/mL (Less than 100) H 07/14/17 07:15 Serum Total Protein 6.0 g/dL (6.4-8.9) L 07/15/17 03:00 Albumin 3.1 g/dL (3.5-5.7) L 07/15/17 03:00 - Microbiology Findings Microbiology Findings: Microbiology, Last 48 Hours 07/14/17 14:09 Blood Culture - Preliminary Peripheral Venipuncture No growth. 07/14/17 14:09 Blood Culture - Preliminary Peripheral Venipuncture No growth. - Clinical Findings Intake & Output: Intake & Output 07/16/17 07/17/17 07/17/17 23:59 07:59 15:59 Intake Total 0 / 0 Output Total 625 / 625 1300 / 1300 Balance -625 / -625 -1300 / -1300 0 / 0 Weight 64.3 kg - Attending Attestation I examined this patient and my medical decision-making was reviewed with the Resident Physician. I agree with the documented findings, disposition and treatment plan as described except to the extent set forth below. Patient seen and examined. Labs, radiology, chart personally reviewed. Agree with resident's history and physical, assessment, plan with following comments: EXTERNAL RELATIONS DIRECTOR: Patient follows commands, Pulmonary: Acceptable oxygenation and ventilation Cardiovascular: stable and cardiology follow-up and workup will be deferred to cardiology. Patient with dynamically stable to be transferred to the floor. GI: Nutrition per dietary and GI prophylaxis per routine Heme: DVT prophylaxis per routine Renal; urine out put and renal funtion reviewed Endorcine: blood glucose is monitored Lines: all lines checked and no evidence of infections Skin: skin care to prevent pressure ulcers per nursing routine care
[2017-07-17] MEDS: Chlorhexidine Rinse 15 ML MOUTHWASH MM SCH (07:59)
[2017-07-17] MEDS: Pantoprazole 40 MG VIAL IVP SCH (08:53)
[2017-07-17] MEDS: MethylPREDNISolone 40 MG/ML VIAL IVP SCH ×2 (08:53→18:03)
[2017-07-17] MEDS: Aspirin 325 MG TABLET GTUBE SCH (08:53)
[2017-07-17] MEDS: cefTRIAXone 1,000 MG in Water for inj. (sterile) 20 ML 10 ML IVP SCH (08:54)
[2017-07-17] MEDS ORDERED: Lacri-Lube 3.5 GM TUBE BOTH EYES PRN (10:55)
[2017-07-17] MEDS ORDERED: Dextrose Gel 15 GM/37.5 ML TUBE PO PRN ×2 (10:55)
[2017-07-17] MEDS ORDERED: *HR* Dextrose 50 % in Water (Syg) 50 ML SYRINGE IVP PRN (10:55)
[2017-07-17] MEDS ORDERED: Naloxone 0.4 MG/ML INJ IVP PRN (10:55)
[2017-07-17] MEDS ORDERED: D5% in Water 1,000 ML IVC PRN (10:55)
[2017-07-17] MEDS ORDERED: Metoprolol XL (24 HR) Succ 25 MG TAB.ER.24H PO ONE (11:58)
[2017-07-17] MEDS ORDERED: Lacri-Lube 3.5 GM TUBE BOTH EYES SCH (12:00)
[2017-07-17] MEDS: *HR* Labetalol 20 MG/4 ML SYRINGE IVP PRN ×2 (14:29→20:53)
[2017-07-17] MEDS: Furosemide 40 MG/4 ML VIAL IVP SCH (18:03)
[2017-07-17] MEDS: *HR* Heparin 5,000 UNIT/ML VIAL SQ SCH (18:04)
[2017-07-17] MEDS ORDERED: Chlorhexidine Rinse 15 ML MOUTHWASH MM SCH (21:00)
[2017-07-17] MEDS ORDERED: Insulin LISPRO 300 UNITS/3 ML VIAL SQ SCH ×2 (21:00)
[2017-07-18] MEDS: *HR* Labetalol 20 MG/4 ML SYRINGE IVP PRN ×2 (01:35→04:22)
[2017-07-18] MEDS: Ipratropium/Albuterol Neb 3 ML IH SCH ×4 (04:50→21:59)
[2017-07-18] MEDS: *HR* Heparin 5,000 UNIT/ML VIAL SQ SCH ×2 (06:23→16:52)
[2017-07-18] MEDS: MethylPREDNISolone 40 MG/ML VIAL IVP SCH (06:23)
[2017-07-18] MEDS: Insulin LISPRO 300 UNITS/3 ML VIAL SQ SCH ×3 (07:41→16:30)
[2017-07-18] MEDS: cefTRIAXone 1,000 MG in Water for inj. (sterile) 20 ML 10 ML IVP SCH (08:51)
[2017-07-18] MEDS: Furosemide 40 MG/4 ML VIAL IVP SCH (08:52)
[2017-07-18] MEDS: Aspirin 325 MG TABLET GTUBE SCH (08:53)
[2017-07-18] MEDS ORDERED: Metoprolol XL (24 HR) Succ 25 MG TAB.ER.24H PO SCH ×2 (09:00)
[2017-07-18] MEDS ORDERED: Loratadine 10 MG TABLET PO PRN (09:01)
[2017-07-18] MEDS ORDERED: traZODone 50 MG TABLET PO PRN (09:06)
[2017-07-18] MEDS: Acetaminophen 325 MG TABLET PO PRN ×2 (09:15→20:36)
[2017-07-18] MEDS ORDERED: NON-FORMULARY MEDICATION 1 EACH EACH (Ezetimibe [Zetia] 10 MG) PO SCH (09:15)
[2017-07-18 09:49] LABS: BUN/Creatinine Ratio 38 (6-26); Blood Urea Nitrogen 48 mg/dL (8-23); Calcium 9.2 mg/dL (8.6-10.3); Carbon Dioxide 29 mEq/L (23-29); Chloride 103 mEq/L (98-107); Glucose 155 mg/dL (70-105); Osmolality,Calculated 310 (280-300); Potassium 4.1 mEq/L (3.5-5.1); Sodium 142 mEq/L (136-145); eGFR For African Americans > 60 (> 60); eGFR For Non-African Americans 56 (> 60)
[2017-07-18 10:30] LABS: Basophils % 0.1 %; Hematocrit 41.6 % (37.5-50.1); Immature Granulocytes % 0.7 % (0-4); Lymphocytes # 0.9 K/mcL (0.6-4.6); Lymphocytes % 8.7 %; Mean Corpuscular HGB Conc 34.1 g/dL (31.6-35.5); Mean Corpuscular Hemoglobin 30.5 pg (28.0-33.3); Mean Corpuscular Volume 89.3 fL (83.0-100.0); Mean Platelet Volume 11.1 fL (9.4-12.4); Monocytes # 0.7 K/mcL (0.0-1.3); Monocytes % 6.6 %; Platelet Count 148 K/mcL (140-400); Red Blood Count 4.66 M/mcL (4.19-5.50); Red Cell Distribution Width 16.1 % (11.5-14.5); Segmented Neutrophils % 83.9 %
[2017-07-18 10:32] LABS: Hemoglobin 14.2 g/dL (12.9-16.9)
--- NOTE | 2017-07-18 11:16 | Cardiology Progress Note ---
Date of Encounter: 07/18/17 Time of Encounter: 11:00 Assessment and Plan (1) Elevated troponin Current Visit: Yes Status: Acute Peak troponin 1.62 in the setting of acute respiratory failure; NSTEMI type I vs. II. [facility] 02/2017: known occluded LCx stent; otherwise non-obstructive CAD. Repeat TTE shows reduced LVEF 30% (EF 35-40%) with similar wall motion abnormality. Suspect troponin elevation secondary to severe , CHF. Continue medical therapy including asa, statin, and BB (2) CHF (congestive heart failure) Current Visit: Yes Status: Acute Acute on chronic CHFrEF , known history of EF 35-40%. Also has known moderate- severe in 2017. [facility] 02/2017 demonstrated moderate CA, known occluded pLCx (2014), and mild- moderate progressive RCA disease (60% mRCA, 65% dRCA). TTE this admit- LVEF 30%. Severe global and regional LV systolic dysfunction - LV wall motion appears similar when compared to Echo 10/2016. Moderate concentric left ventricular hypertrophy. Definity echo contrast was not used - no identifiable LV thrombus. Normal right ventricular structure and function. Mild mitral regurgitation. Moderate to severe aortic stenosis. Mild tricuspid regurgitation. Pleural effusion is present. No pulmonary hypertension by TR gradient - 14 mmHg, may not be well obtained. BNP greater than 5000. CXR- ARDS. Presented with acute respiratory hypoxic and hypercapnic respiratory failure requiring intubation. Extubated early this morning. Respiratory distress felt to be secondary to ARDS, flash pulmonary edema. Continue BB. Recommend ACEi by discharge if SCr will allow. Strict I&O's, daily weights, Na/fluid restricted diet. Qualifiers: Heart failure type: systolic Heart failure chronicity: acute on chronic Qualified Code(s): I50.23 - Acute on chronic systolic (congestive) heart failure (3) Aortic stenosis Current Visit: Yes Status: Acute Hx of moderate-severe . NICHELLE to further evaluate 2016 demonstrated not severe , however maybe secondary to reduced stroke volume. CHRISTIANO 1.87 cm2, PV 2.75 m/s, MG=15 mmHg. Repeat TTE shows LVEF 30% with severe global and RWMA ( no significant change from previous) moderate cLVH, mild MR, moderate to severe . Discussed with Dr. Mcallister; recommend dobutamine stress echocardiogram to further evaluate severity of --plan to complete today. Qualifiers: Cardiac valve disease etiology: etiology unspecified Qualified Code(s): I35.0 - Nonrheumatic aortic (valve) stenosis (4) Acute respiratory failure with hypoxia and hypercapnia Current Visit: Yes Status: Acute Remains intubated and sedated. Mgmt per ICU team. Discussion w patient/family: The assessment and plan as outlined above was discussed with the patient and/or family members who expressed understanding and agreement. All questions were answered. Thank you for involving us in the care of your patient. Please call with any questions. The patient will be discussed and reviewed with Dr. Mcallister; changes to be made accordingly. Subjective Principal diagnosis: Respiratory failure/HCAP Interval history: Seen and examined. Now on 2A. Alert and oriented x3. Able to recall events leading up to event prior to admission. No complaints upon exam today. Objective Vital Signs, Last 4 Hours Temp Pulse Resp BP Pulse Ox 07/18/17 10:52 97.7 F 82 18 190/100 93 07/18/17 10:33 18 95 General: Conversant, No Apparent Distress HEENT: Atraumatic, Normocephaly, Mucus Membranes Moist Cardiac: Reg Rate and Rhythm, Normal S1 and S2 Lungs: Normal Breath Sounds Neuro: Alert and responsive Abdomen: Soft Skin: No rashes noted on visualized skin Musculoskeletal: No Chest Wall Tenderness Extremities: No Edema, Normal Pulses Results 07/18/17 10:00 07/18/17 09:06 Lab Results 07/18/17 07/18/17 09:06 10:00 WBC 10.8 Hgb 14.2 D Hct 41.6 Plt Count 148 Sodium 142 Potassium 4.1 Chloride 103 Carbon Dioxide 29 BUN 48 H Creatinine 1.25 Glucose 155 H Calcium 9.2 Active Medications Acetaminophen (Tylenol) 650 mg PO Q6HR PRN PRN Reason: Mild Pain Stop: 01/17/18 08:56 Last Admin: 07/18/17 09:15 Dose: 650 mg Albuterol/Ipratropium (Duoneb) 3 ml IH [id number] [facility] Stop: 01/13/18 04:01 Last Admin: 07/18/17 10:32 Dose: 3 ml Aspirin (Aspirin) 325 mg GTUBE DAILY [facility] Stop: 01/13/18 09:01 Last Admin: 07/18/17 08:53 Dose: 325 mg Clopidogrel Bisulfate (Plavix) 75 mg PO DAILY [facility] Stop: 01/17/18 09:16 Dextrose/Water (Dextrose 50% (Syg)) 25 ml IVP AD PRN PRN Reason: Hypoglycemia Stop: 01/14/18 10:56 Docusate Sodium (Colace) 100 mg PO DAILY [facility] PRN Reason: Protocol Stop: 01/17/18 09:16 Famotidine (Pepcid) 20 mg PO DAILY [facility] Stop: 01/17/18 09:16 Furosemide (Lasix) 40 mg IVP DAILY [facility] Stop: 01/18/18 09:01 Glucagon (Glucagen) 1 mg IM ONCE PRN PRN Reason: Hypoglycemia Stop: 01/14/18 10:56 Glucose (Gluctose) 15 gm PO ONCE PRN PRN Reason: Hypoglycemia Stop: 01/14/18 10:56 Glucose (Gluctose) 30 gm PO ONCE PRN PRN Reason: Hypoglycemia Stop: 01/14/18 10:56 Heparin Sodium (Porcine) (Heparin) 5,000 unit SQ Q12HCO [facility] Stop: 01/16/18 18:01 Last Admin: 07/18/17 06:23 Dose: 5,000 unit Ceftriaxone Sodium 1,000 mg/ (Sterile Water) 10 mls @ 300 mls/hr IVP DAILY [facility] Stop: 01/13/18 09:01 Last Admin: 07/18/17 08:51 Dose: 300 mls/hr Dextrose (Dextrose 5%) 1,000 mls @ 100 mls/hr IVC .Q10H PRN PRN Reason: HYPOGLYCEMIA Stop: 01/14/18 10:56 Insulin Human Lispro (Humalog) 0 units SQ TIDAC [facility] PRN Reason: Protocol Stop: 01/17/18 07:31 Last Admin: 07/18/17 07:41 Dose: Not Given Insulin Human Lispro (Humalog) 0 units SQ [facility] PRN Reason: Protocol Stop: 01/16/18 21:16 Last Admin: 07/17/17 22:54 Dose: Not Given Isosorbide Mononitrate (Imdur) 60 mg PO DAILY [facility] Stop: 01/17/18 09:16 Labetalol HCl (Labetalol) 10 mg IVP Q1H PRN PRN Reason: Systolic bp above 160 Stop: 01/16/18 11:58 Last Admin: 07/18/17 04:22 Dose: 10 mg Lisinopril (Zestril) 10 mg PO DAILY [facility] PRN Reason: Protocol Stop: 01/17/18 09:16 Loratadine (Claritin) 10 mg PO DAILY PRN PRN Reason: Allergy Symptoms Methylprednisolone (Solu-Medrol) 40 mg IVP Q12HR [facility] Stop: 01/16/18 18:01 Last Admin: 07/18/17 06:23 Dose: 40 mg Metoprolol Succinate (Toprol Xl) 25 mg PO DAILY [facility] Stop: 01/18/18 09:01 Naloxone HCl (Narcan) 0.4 mg IVP Q2MIN PRN PRN Reason: SEE COMMENTS Stop: 01/13/18 00:45 Rosuvastatin Calcium (Crestor) 40 mg PO HS [facility] Stop: 01/17/18 21:01 Trazodone HCl (Trazodone) 50 mg PO HS PRN PRN Reason: Insomnia Stop: 01/17/18 09:07 - Imaging and Cardiology Echo: report reviewed Cardiac cath: report reviewed Other Results: 12 hour tele: avg HR=82 SR. - EKG Interpretation EKG results cardiology: personally reviewed - VTE Documentation of Mechanical Device: Intermittent pneumatic compression device Consult Discharge Plan - Plan Referrals: Brad Collins DO [Primary Care Provider] -
[2017-07-18] MEDS: Isosorbide MONOnitrate (24 HR) 60 MG TAB.ER.24H PO SCH (16:51)
[2017-07-18] MEDS: predniSONE 20 MG TABLET PO SCH (16:51)
[2017-07-18] MEDS: Famotidine 20 MG TABLET PO SCH (16:51)
--- NOTE | 2017-07-18 20:33 | Internal Med Progress Note ---
Date of Encounter: 07/18/17 Time of Encounter: 20:31 - Assessment and plan (1) Elevated troponin Current Visit: Yes Status: Acute Assessment and plan: Troponin peaked at 1.62, then trended down. Possible NSTEMI, or just secondary to acute respiratory failure, aortic stenosis, and/or CHF. Cardiology consulted ; appreciate input. Went for dobutamine stress test today since ANNA resolved. ECHO showed LVEF 30%. Continue aspirin, statin, and beta arthur. Will await further cardiology recommendations. (2) Acute respiratory failure with hypoxia and hypercapnia Current Visit: Yes Status: Acute Assessment and plan: Multifactorial with acute heart failure, pneumonia, and COPD exacerbation. Recent ICU stay with intubation/mechanical ventilation. He states that he is doing well today and continues to improve. Continue supplemental O2 and nebs PRN. Treat underlying causes as per below. (3) Acute exacerbation of congestive heart failure Current Visit: Yes Status: Acute Assessment and plan: Cardiology consulted; appreciate input. ECHO results as per above. Looks to be improving. Decreased lasix to 40 mg IV QD. Monitor strict I&O's and daily weights. Start 2L/day fluid restricted cardiac diet. Restart home medications. Qualifiers: Heart failure type: combined systolic and diastolic Qualified Code(s): I50.43 - Acute on chronic combined systolic (congestive) and diastolic ( congestive) heart failure (4) Hypertensive emergency Current Visit: Yes Status: Acute Assessment and plan: Blood pressure trending up now. Will give one-time of his home lisinopril 10 mg QD now, then continue all other home BP medications in AM since now taking PO. Continue labetalol IV PRN. (5) Pneumonia Current Visit: Yes Status: Acute Assessment and plan: Continue IV rocephin. Follow up on cultures. Qualifiers: Pneumonia type: due to unspecified organism Laterality: unspecified laterality Lung location: unspecified part of lung Qualified Code(s): J18.9 - Pneumonia, unspecified organism (6) COPD exacerbation Current Visit: Yes Status: Acute Assessment and plan: Patient has history of COPD and not on oxygen. Discontinue solumedrol and switch to prednisone 40 mg PO QD. Continue supplemental oxygen and nebs PRN. (7) DVT prophylaxis Current Visit: Yes Status: Acute Assessment and plan: Continue SCDs and heparin SQ. - Time Spent With Patient Total time spent is greater than 50% in coordination of care (as documented) at patient's floor/unit and/or counseling patient: less than 15 minutes - Subjective Interval history: Patient had no acute events overnight. He was out all day for dobutamine stress test. He is doing well this evening after procedure. He denies chest pain, SOB, fever, chill, nausea, or vomiting. He has no complaints at this time. - Constitutional Vitals: Temp Pulse Resp BP Pulse Ox 97.7 F 90 16 153/103 90 07/18/17 18:57 07/18/17 18:57 07/18/17 18:57 07/18/17 18:57 07/18/17 18:57 General appearance: Present: cooperative, A&O X 3, pleasant, no acute distress, answers questions appropriately - Respiratory Respiratory exam: Present: CTAB. Absent: accessory muscle use, rales, rhonchi, wheezes Additional comments: Normal WOB - Cardiovascular Cardiovascular exam: Present: RRR, +S1, +S2. Absent: diastolic murmur, gallop, rubs, systolic murmur Additional comments: No BLE edema - GI/Abdominal GI/Abdominal exam: Present: normal bowel sounds, soft. Absent: distended, hepatomegaly, mass, splenomegaly, tenderness - Psychiatric Psychiatric exam: Present: normal affect, normal mood. Absent: agitated, anxious, depressed - Skin Skin exam: Present: dry, intact, warm. Absent: cyanosis, rash Internal Medicine: Result - Labs CBC & Chem 7: 07/18/17 10:00 07/18/17 09:06 Labs: Short CBC 07/18/17 Range/Units 10:00 WBC 10.8 (4.3-11.1) K/mcL Hgb 14.2 D (12.9-16.9) g/dL Hct 41.6 (37.5-50.1) % Plt Count 148 (140-400) K/mcL Neutrophils # 9.0 H (1.6-8.9) K/mcL BMP 07/18/17 09:06 Sodium 142 Potassium 4.1 Chloride 103 Carbon Dioxide 29 BUN 48 H Creatinine 1.25 Glucose 155 H Calcium 9.2 - ABG Interpretation ABG results: ABG ABG pH 7.38 pH Units (7.32-7.45) 07/16/17 04:34 ABG pCO2 50 mmHg (35-45) H 07/16/17 04:34 ABG pO2 77 mmHg (85-104) L 07/16/17 04:34 ABG O2 Saturation 95 % (95-98) 07/16/17 04:34 PT/INR, D-dimer PT 13.3 Seconds (9.4-12.1) H 07/14/17 01:20 - VTE Documentation of Mechanical Device: Intermittent pneumatic compression device Consult Discharge Plan - Plan Referrals: Brad Collins DO [Primary Care Provider] -
[2017-07-19] MEDS: Insulin LISPRO 300 UNITS/3 ML VIAL SQ SCH ×5 (03:25→21:59)
[2017-07-19] MEDS: Ipratropium/Albuterol Neb 3 ML IH SCH ×4 (03:50→22:32)
[2017-07-19] MEDS: *HR* Labetalol 20 MG/4 ML SYRINGE IVP PRN ×2 (03:54→08:08)
[2017-07-19 04:28] LABS: Basophils % 0.1 %; Hematocrit 38.4 % (37.5-50.1); Hemoglobin 13.1 g/dL (12.9-16.9); Immature Granulocytes % 0.9 % (0-4); Lymphocytes # 1.1 K/mcL (0.6-4.6); Lymphocytes % 13.9 %; Mean Corpuscular HGB Conc 34.1 g/dL (31.6-35.5); Mean Corpuscular Hemoglobin 30.4 pg (28.0-33.3); Mean Corpuscular Volume 89.1 fL (83.0-100.0); Mean Platelet Volume 11.3 fL (9.4-12.4); Monocytes # 0.8 K/mcL (0.0-1.3); Monocytes % 9.7 %; Neutrophils # 5.9 K/mcL (1.6-8.9); Platelet Count 142 K/mcL (140-400); Red Blood Count 4.31 M/mcL (4.19-5.50); Red Cell Distribution Width 15.7 % (11.5-14.5); Segmented Neutrophils % 75.4 %
[2017-07-19 04:50] LABS: BUN/Creatinine Ratio 38 (6-26); Blood Urea Nitrogen 49 mg/dL (8-23); Calcium 9.2 mg/dL (8.6-10.3); Carbon Dioxide 38 mEq/L (23-29); Chloride 103 mEq/L (98-107); Glucose 140 mg/dL (70-105); Osmolality,Calculated 311 (280-300); Sodium 143 mEq/L (136-145); eGFR For African Americans > 60 (> 60); eGFR For Non-African Americans 54 (> 60)
[2017-07-19] MEDS: *HR* Heparin 5,000 UNIT/ML VIAL SQ SCH ×2 (05:40→17:26)
[2017-07-19] MEDS: Acetaminophen 325 MG TABLET PO PRN ×2 (05:40→12:08)
[2017-07-19] MEDS: predniSONE 20 MG TABLET PO SCH (08:06)
[2017-07-19] MEDS: Aspirin 325 MG TABLET GTUBE SCH (08:06)
[2017-07-19] MEDS: cefTRIAXone 1,000 MG in Water for inj. (sterile) 20 ML 10 ML IVP SCH (08:07)
[2017-07-19] MEDS: Famotidine 20 MG TABLET PO SCH (08:07)
[2017-07-19] MEDS: Metoprolol XL (24 HR) Succ 25 MG TAB.ER.24H PO SCH (08:07)
[2017-07-19] MEDS: Isosorbide MONOnitrate (24 HR) 60 MG TAB.ER.24H PO SCH (08:07)
[2017-07-19] MEDS ORDERED: Furosemide 40 MG/4 ML VIAL IVP SCH (09:00)
--- NOTE | 2017-07-19 10:36 | Cardiology Progress Note ---
Date of Encounter: 07/19/17 Time of Encounter: 10:00 Assessment and Plan (1) CHF (congestive heart failure) Current Visit: Yes Status: Acute Acute on chronic CHFrEF , known history of EF 35-40%. Also has known moderate- severe in 2017. [facility] 02/2017 demonstrated moderate CAD, known occluded pLCx (2014), and mild- moderate progressive RCA disease (60% mRCA, 65% dRCA). TTE this admit- LVEF 30%. Severe global and regional LV systolic dysfunction - LV wall motion appears similar when compared to Echo 10/2016. Moderate concentric left ventricular hypertrophy. Definity echo contrast was not used - no identifiable LV thrombus. Normal right ventricular structure and function. Mild mitral regurgitation. Moderate to severe aortic stenosis. Mild tricuspid regurgitation. Pleural effusion is present. No pulmonary hypertension by TR gradient - 14 mmHg, may not be well obtained. BNP greater than 5000. CXR- ARDS on admission. Presented with acute respiratory hypoxic and hypercapnic respiratory failure initially requiring intubation. Now extubated on stepdown unit. Respiratory status significantly improved. Laying flat without oxygen this morning. Near euvolemia on exam. Continue BB and aceI. Maintenance lasix. Scr returned to normal. Strict I&O's, daily weights, Na/fluid restricted diet. CHF education. Qualifiers: Heart failure type: systolic Heart failure chronicity: acute on chronic Qualified Code(s): I50.23 - Acute on chronic systolic (congestive) heart failure (2) Aortic stenosis Current Visit: Yes Status: Acute Hx of moderate-severe . NICHELLE to further evaluate Feb, 2017 demonstrated not severe , however maybe secondary to reduced stroke volume. CHRISTIANO 1.87 cm2, PV 2.75 m/s, MG=15 mmHg. Repeat TTE this admission shows LVEF 30% with severe global and RWMA ( no significant change from previous) moderate cLVH, mild MR, moderate to severe . Dobutamine stress echo completed today shows psuedosevere aortic stenosis. Findings:Increase in aortic valve area at 20mcg/kg/min to 1.23 cm2 from baseline 0.9cm2, mild increase in MG 34 mmHg from baseline 17 mmHg. Findings suggest the presence of pseudosevere aortic stenosis and poor contractile reserve. Discussed with Dr. Mcallister, out-patient referral for CT surgery eval will be coordinated with [facility]. Out-pt f/u to be scheduled with [facility]. We will sign off. Call with questions. Qualifiers: Cardiac valve disease etiology: etiology unspecified Qualified Code(s): I35.0 - Nonrheumatic aortic (valve) stenosis (3) Elevated troponin Current Visit: Yes Status: Acute Peak troponin 1.62 in the setting of acute respiratory failure; NSTEMI type I vs. II. [facility] 02/2017: known occluded LCx stent; otherwise non-obstructive CAD. Repeat TTE shows reduced LVEF 30% (EF 35-40%) with similar wall motion abnormality. Suspect troponin elevation secondary to severe , CHF. Continue medical therapy including asa, statin, and BB. No further cardiac testing at this time. He is not a candidate for cardiac rehab. Discussion w patient/family: The assessment and plan as outlined above was discussed with the patient and/or family members who expressed understanding and agreement. All questions were answered. Thank you for involving us in the care of your patient. Please call with any questions. Subjective Principal diagnosis: Respiratory failure/HCAP Interval history: Mr. Castillo is resting in bed. Reports having to urinate frequently otherwise no CV complaints. Objective Vital Signs, Last 4 Hours Temp Pulse Resp BP Pulse Ox 07/19/17 10:13 97.6 F 65 16 181/92 92 07/19/17 08:25 92 07/19/17 07:08 97.5 F L 61 16 186/90 92 General: Conversant, No Apparent Distress, Other (Very [place]) HEENT: Atraumatic, Normocephaly, Mucus Membranes Moist Neck: No JVD, Normal carotid pulses Cardiac: Reg Rate and Rhythm, Normal S1 and S2, No Murmur Lungs: Normal Breath Sounds, No Wheeze, Rales, Rhonchi Neuro: Alert and responsive, No focal deficits noted Abdomen: Soft, Non-Tender Skin: No rashes noted on visualized skin Musculoskeletal: No Chest Wall Tenderness Extremities: No Clubbing, No Cyanosis, No Edema, Normal Pulses Results 07/19/17 03:49 07/19/17 03:49 Lab Results 07/18/17 07/19/17 07/19/17 10:00 03:49 03:49 WBC 10.8 7.9 Hgb 14.2 D 13.1 Hct 41.6 38.4 Plt Count 148 142 Sodium 143 Potassium 4.0 Chloride 103 Carbon Dioxide 38 H BUN 49 H Creatinine 1.29 Glucose 140 H Calcium 9.2 - Imaging and Cardiology Stress Test: report reviewed Echo: report reviewed - EKG Interpretation EKG results cardiology: personally reviewed - VTE Documentation of Mechanical Device: Intermittent pneumatic compression device Consult Discharge Plan - Plan Referrals: Brad Collins DO [Primary Care Provider] -
[2017-07-19] MEDS ORDERED: Furosemide 40 MG TABLET PO SCH (11:00)
[2017-07-19 13:08] LABS: Bilirubin,Urine Negative (Negative); Blood,Urine Moderate (Negative); Clarity,Urine Clear (Clear); Color,Urine Yellow (Yellow); Glucose,Urine (UA) Normal (Normal); Ketones,Urine Negative (Negative); Leukocyte Esterase,Urine Negative (Negative); Nitrite,Urine Negative (Negative); Protein,Urine 30 mg/dL (Neg-Trace); Specific Gravity,Urine 1.014 (1.010-1.025); Urobilinogen,Urine Normal (Normal)
[2017-07-19 13:11] LABS: Bacteria,Urine None Seen per hpf (None-Few); Hyaline Casts,Urine None Seen per lpf (None-Few); Squamous Epithelial Cell,Urine Few per lpf (None-Few); WBC,Urine 0-3 per hpf (0-3)
--- NOTE | 2017-07-19 20:39 | Internal Med Progress Note ---
Date of Encounter: 07/19/17 Time of Encounter: 13:27 - Assessment and plan (1) Elevated troponin Current Visit: Yes Status: Acute Assessment and plan: Troponin peaked at 1.62, then trended down. Possible NSTEMI, or just secondary to acute respiratory failure, aortic stenosis, and/or CHF. Cardiology consulted ; appreciate input. Dobutamine stress test showed findings suggestive of the presence of pseudosevere aortic stenosis and poor contractile reserve. ECHO showed LVEF 30%. Continue aspirin, statin, and beta arthur. Cardiology signed off today with outpatient follow up. (2) Acute respiratory failure with hypoxia and hypercapnia Current Visit: Yes Status: Acute Assessment and plan: Multifactorial with acute heart failure, pneumonia, and COPD exacerbation. Recent ICU stay with intubation/mechanical ventilation. He states that he is doing well today and continues to improve. Continue supplemental O2 and nebs PRN. Treat underlying causes as per below. (3) Acute exacerbation of congestive heart failure Current Visit: Yes Status: Acute Assessment and plan: Cardiology consulted; appreciate input. ECHO and stress test results as per above. Looks to be improving. Changed lasix to home 40 mg PO QD. Monitor strict I&O's and daily weights. Continue 2L/day fluid restricted cardiac diet. Continue home medications. Qualifiers: Heart failure type: combined systolic and diastolic Qualified Code(s): I50.43 - Acute on chronic combined systolic (congestive) and diastolic ( congestive) heart failure (4) Hypertensive emergency Current Visit: Yes Status: Acute Assessment and plan: Blood pressure trending up now. Restarted all home anti-hypertensives. Continue labetalol and hydralazine IV PRN. Looked to be improving by this afternoon. Will monitor vitals closely. (5) Pneumonia Current Visit: Yes Status: Acute Assessment and plan: Continue IV rocephin. Follow up on cultures. Qualifiers: Pneumonia type: due to unspecified organism Laterality: unspecified laterality Lung location: unspecified part of lung Qualified Code(s): J18.9 - Pneumonia, unspecified organism (6) COPD exacerbation Current Visit: Yes Status: Acute Assessment and plan: Patient has history of COPD and not on oxygen. Continue prednisone 40 mg PO QD. Will plan for taper at discharge. Continue supplemental oxygen and nebs PRN. (7) Urethral trauma Current Visit: Yes Status: Acute Assessment and plan: Likely cause of his pain. Likely secondary to traumatic rosario removal 2 days ago. UA unremarkable except moderate blood. Will hold SQ heparin for now. Continue Tylenol and monitor. May consider topical lidocaine. Qualifiers: Encounter type: initial encounter Qualified Code(s): S37.30XA - Unspecified injury of urethra, initial encounter (8) DVT prophylaxis Current Visit: Yes Status: Acute Assessment and plan: Continue SCDs. Discontinue heparin SQ as per above. - Time Spent With Patient Total time spent is greater than 50% in coordination of care (as documented) at patient's floor/unit and/or counseling patient: less than 15 minutes - Subjective Interval history: Patient had no acute events overnight. He is breathing well at this time; at baseline per patient. He denies chest pain, SOB, fever, chill, nausea, or vomiting. His only complaint is "pain when peeing." Rosario catheter was pulled 2 days ago, and may have been traumatic per patient. Nursing staff notified of increasing BP this AM; he is now getting all of his home BP medications this morning. - Constitutional Vitals: Temp Pulse Resp BP Pulse Ox 97.8 F 72 16 142/83 95 07/19/17 19:33 07/19/17 19:33 07/19/17 19:33 07/19/17 19:33 07/19/17 19:33 General appearance: Present: cooperative, A&O X 3, pleasant, no acute distress, answers questions appropriately - Respiratory Respiratory exam: Present: CTAB. Absent: accessory muscle use, rales, rhonchi, wheezes Additional comments: Normal WOB - Cardiovascular Cardiovascular exam: Present: RRR, +S1, +S2. Absent: diastolic murmur, gallop, rubs, systolic murmur Additional comments: No BLE edema - GI/Abdominal GI/Abdominal exam: Present: normal bowel sounds, soft. Absent: distended, hepatomegaly, mass, splenomegaly, tenderness - Psychiatric Psychiatric exam: Present: normal affect, normal mood. Absent: agitated, anxious, depressed - Skin Skin exam: Present: dry, intact, warm. Absent: cyanosis, rash Internal Medicine: Result - Labs CBC & Chem 7: 07/19/17 03:49 07/19/17 03:49 Labs: Short CBC 07/19/17 Range/Units 03:49 WBC 7.9 (4.3-11.1) K/mcL Hgb 13.1 (12.9-16.9) g/dL Hct 38.4 (37.5-50.1) % Plt Count 142 (140-400) K/mcL Neutrophils # 5.9 (1.6-8.9) K/mcL BMP 07/19/17 03:49 Sodium 143 Potassium 4.0 Chloride 103 Carbon Dioxide 38 H BUN 49 H Creatinine 1.29 Glucose 140 H Calcium 9.2 Urine 07/19/17 Range/Units 12:50 Urine Color Yellow (Yellow) Urine Clarity Clear (Clear) Urine pH 7.0 (5.0-8.0) pH Units Ur Specific [place] 1.014 (1.010-1.025) Urine Protein 30 H (Neg-Trace) mg/dL Urine Glucose (UA) Normal (Normal) mg/dL - ABG Interpretation ABG results: ABG ABG pH 7.38 pH Units (7.32-7.45) 07/16/17 04:34 ABG pCO2 50 mmHg (35-45) H 07/16/17 04:34 ABG pO2 77 mmHg (85-104) L 07/16/17 04:34 ABG O2 Saturation 95 % (95-98) 07/16/17 04:34 PT/INR, D-dimer PT 13.3 Seconds (9.4-12.1) H 07/14/17 01:20 - VTE Documentation of Mechanical Device: Intermittent pneumatic compression device Consult Discharge Plan - Plan Referrals: Brad Collins DO [Primary Care Provider] -
[2017-07-20] MEDS: Ipratropium/Albuterol Neb 3 ML IH SCH ×2 (04:03→09:35)
[2017-07-20 05:00] LABS: Basophils % 0.1 %; Eosinophils # 0.1 K/mcL (0.0-0.6); Hematocrit 40.3 % (37.5-50.1); Hemoglobin 13.4 g/dL (12.9-16.9); Immature Granulocytes % 0.7 % (0-4); Lymphocytes # 2.2 K/mcL (0.6-4.6); Lymphocytes % 24.1 %; Mean Corpuscular HGB Conc 33.3 g/dL (31.6-35.5); Mean Corpuscular Hemoglobin 29.8 pg (28.0-33.3); Mean Corpuscular Volume 89.8 fL (83.0-100.0); Mean Platelet Volume 10.9 fL (9.4-12.4); Monocytes % 11.2 %; Neutrophils # 5.7 K/mcL (1.6-8.9); Platelet Count 139 K/mcL (140-400); Red Blood Count 4.49 M/mcL (4.19-5.50); Red Cell Distribution Width 15.8 % (11.5-14.5); Segmented Neutrophils % 62.9 %
[2017-07-20 05:20] LABS: BUN/Creatinine Ratio 42 (6-26); Blood Urea Nitrogen 50 mg/dL (8-23); Carbon Dioxide 33 mEq/L (23-29); Chloride 103 mEq/L (98-107); Glucose 110 mg/dL (70-105); Osmolality,Calculated 312 (280-300); Potassium 3.4 mEq/L (3.5-5.1); Sodium 144 mEq/L (136-145); eGFR For African Americans > 60 (> 60); eGFR For Non-African Americans > 60 (> 60)
[2017-07-20] MEDS: Insulin LISPRO 300 UNITS/3 ML VIAL SQ SCH ×2 (07:51→13:05)
[2017-07-20] MEDS ORDERED: Furosemide 40 MG TABLET PO SCH (09:00)
[2017-07-20] MEDS: predniSONE 20 MG TABLET PO SCH (09:14)
[2017-07-20] MEDS: cefTRIAXone 1,000 MG in Water for inj. (sterile) 20 ML 10 ML IVP SCH (09:14)
[2017-07-20] MEDS: Famotidine 20 MG TABLET PO SCH (09:15)
[2017-07-20] MEDS: Isosorbide MONOnitrate (24 HR) 60 MG TAB.ER.24H PO SCH (09:15)
[2017-07-20] MEDS: Metoprolol XL (24 HR) Succ 25 MG TAB.ER.24H PO SCH (09:15)
[2017-07-20] MEDS: Aspirin 325 MG TABLET GTUBE SCH (09:15)
[2017-07-20 10:52] VITALS: BP 134/96
--- NOTE | 2017-07-20 11:15 | Discharge Summary ---
- NOTES TO OUTPATIENT PROVIDER Notes to Outpatient Provider: Follow up with PCP in 2-3 days after discharge. Recheck BMP (hypkalemia) at that time. Follow up with cardiology as directed, and they will coordinate outpatient referral for CT surgery evaluation at [facility]. Orders not resulted at time of discharge: Pending orders 07/21/17 04:00 BMP [Basic Metabolic Panel] AM 0400 Date of Encounter: 07/20/17 Time of Encounter: 10:27 - Discharge Diagnosis (1) Elevated troponin Priority: Primary Status: Acute (2) Acute respiratory failure with hypoxia and hypercapnia Priority: Secondary Status: Resolved (3) Acute exacerbation of congestive heart failure Priority: Secondary Status: Resolved Qualifiers: Heart failure type: combined systolic and diastolic Qualified Code(s): I50.43 - Acute on chronic combined systolic (congestive) and diastolic ( congestive) heart failure (4) Hypertensive emergency Priority: Secondary Status: Resolved (5) Pneumonia Priority: Secondary Status: Acute Qualifiers: Pneumonia type: due to unspecified organism Laterality: unspecified laterality Lung location: unspecified part of lung Qualified Code(s): J18.9 - Pneumonia, unspecified organism (6) COPD exacerbation Priority: Secondary Status: Acute (7) Urethral trauma Priority: Secondary Status: Resolved Qualifiers: Encounter type: initial encounter Qualified Code(s): S37.30XA - Unspecified injury of urethra, initial encounter (8) DVT prophylaxis Priority: Secondary Status: Acute Hospital course: Mr. Castillo is a 72 year old male admitted as transfer from [place] with acute on chronic respiratory failure, likely secondary to CHF exacerbation and COPD exacerbation. Patient arrived intubated and was admitted to ICU. He was placed on ventilator and weaned as tolerated. He had mild troponin elevation to 0.08. Cardiology was consulted. Software Architect was consulted; please see their notes for full ICU course details. He was started on IV azithromycin and IV rocephin for suspected pneumonia; this was deescalated to just IV rocephin. He was treated with IV solumedrol for COPD exacerbation; this was weaned to prednisone 40 mg PO QD on day of discharge. He will complete taper at home. He was treated with IV lasix for CHF exacerbation; this was weaned to home lasix 40 mg PO QD. Cardiology performed ECHO this admission that showed LVEF 30 % with severe global and RWMA (no significant change from previous), moderate cLVH, mild MR, and moderate to severe . He also had dobutamine stress test performed. He had brief ANNA that resolved. He had some penile urethra trauma after rosario removal; he states pain is resolved on day of discharge. He was transferred to general medical floor following extubation. Respiratory status continued to improve until back at baseline on day of discharge per patient. Cardiology felt his troponin elevation was likely secondary to severe aortic stenosis and CHF. He will follow up with them in clinic for outpatient referral to CT surgery at [facility] for evaluation. PT/OT evaluated patient and recommend no needs. He is able to independently ambulate for me. He will follow up with PCP in 2-3 days after discharge. BMP can be checked at that time (ANNA, hypokalemia). Patient has met maximum benefit of this hospitalization and will be discharged home in stable condition. Discharge discussed with: patient, nurse - Time Spent with Patient Total time spent providing and/or coordinating discharge services: Greater than 30 minutes - Discharge Medications Prescriptions: predniSONE [PredniSONE] See Taper PO DAILY 16 Days #40 tablet Home Medications: Albuterol Sulfate [Ventolin Hfa] 18 gm IH PRN PRN 10/28/16 [History] Clopidogrel Bisulfate [Plavix] 75 mg PO DAILY 10/28/16 [History] Docusate [Colace] 100 mg PO DAILY 10/28/16 [History] Ezetimibe [Zetia] 10 mg PO DAILY 10/28/16 [History] Isosorbide MONOnitrate (24 HR) [Imdur] 60 mg PO DAILY 10/28/16 [History] Lisinopril [Zestril] 10 mg PO DAILY 10/28/16 [History] Rosuvastatin [Crestor] 40 mg PO HS 10/28/16 [History] Cetirizine HCl [Zyrtec] 10 mg PO DAILY PRN #0 10/30/16 [Rx] Furosemide [Lasix] 40 mg PO DAILY 07/04/17 [History] raNITIdine HCl [Ranitidine HCl] 300 mg PO DAILY 07/04/17 [History] traZODone [TraZODone] 50 mg PO HS PRN 07/13/17 [History] Metoprolol Succinate [Toprol Xl] 25 mg PO DAILY 07/14/17 [History] predniSONE [PredniSONE] See Taper PO DAILY 16 Days #40 tablet 07/20/17 [Rx] Allergies/Adverse Reactions: 3 Allergy/AdvReac Type Severity Reaction Status Date / Time citalopram AdvReac Confusion Verified 03/01/17 07:43 Date of admission: 07/14/17 00:25 Primary care physician: Brad Collins DO Consults: 07/14/17 00:48 Consult to Pulmonology [CONS] Routine Consulting Provider: [facility] [place] Reason for Consult: respiratory failure. intubated Call Completed: Yes 07/14/17 00:52 Consult to Cardiology [CONS] Routine Comment: Consulting Provider: Cardiology [place] Reason for Consult: heart failure. h/o aortic stenosis Call Completed: No 07/19/17 08:21 Consult to Nurse Navigator [CONS] Routine Comment: CHF 07/19/17 15:16 Consult to Occupational Therapy [CONS] Routine Comment: Evaluate, develop and implement POC Reason for Consult: eval for ecf Does patient have active BEDREST order?: No Is patient medically & hemodynamically stable?: Yes Consult to Physical Therapy [CONS] Routine Comment: Evaluate, develop and implement POC Reason for Consult: eval for ecf Does patient have active BEDREST order?: No Is patient medically & hemodynamically stable?: Yes Discharging clinician: Sam June Anticipated date of discharge: 07/20/17 - Constitutional Vitals: Temp Pulse Resp BP Pulse Ox 98.0 F 74 17 134/96 94 07/20/17 10:46 07/20/17 10:46 07/20/17 10:46 07/20/17 10:46 07/20/17 10:46 General appearance: Present: cooperative, A&O X 3, pleasant, no acute distress, answers questions appropriately - Respiratory Respiratory exam: Present: CTAB. Absent: accessory muscle use, rales, rhonchi, wheezes Additional comments: Normal WOB - Cardiovascular Cardiovascular exam: Present: RRR, +S1, +S2. Absent: diastolic murmur, gallop, rubs, systolic murmur Additional comments: No BLE edema - GI/Abdominal GI/Abdominal exam: Present: normal bowel sounds, soft. Absent: distended, hepatomegaly, mass, splenomegaly, tenderness - Neurological Exam Neurological exam: Present: alert, CN II-XII intact, normal gait, oriented X3, no focal deficits, strengths equal and symetr throughout. Absent: motor sensory deficit - Psychiatric Psychiatric exam: Present: normal affect, normal mood. Absent: agitated, anxious, depressed - Skin Skin exam: Present: dry, intact, warm. Absent: cyanosis, rash - Patient Status Disposition: Home, Self-Care Condition: Good Functional capacity at discharge: independent ambulation Overall status at discharge: patient is progressing back to baseline - Discharge Instructions Follow Up With: Brad Collins DO [Primary Care Provider] - Additional Instructions: Follow up with PCP in 2-3 days after discharge. Recheck BMP (hypkalemia) at that time. Follow up with cardiology as directed, and they will coordinate outpatient referral for CT surgery evaluation at [facility]. - Diet and Activity Activity: resume usual activities as tolerated Diet: low fat, low cholesterol, low salt diet, other (Cardiac Diet, Fluid Restriction 2L/day)
== END 2017-07-20 14:15 | disposition home or self-care (01) | DRG 291 ==
LOC: ICNU 07-14 00:25 → 2ANU 07-17 16:17
PROVIDERS: ADMIT Internal Medicine; ATTEND Internal Medicine

== ENCOUNTER 2018-12-28 20:02 | Inpatient (IN) ==
[2018-12-29] MEDS: Nitroglycerin 25 MG/250 ML INFUS..BTL IVC SCH ×2 (00:41→04:27)
[2018-12-29] MEDS ORDERED: Naloxone 0.4 MG/ML INJ IVP PRN ×2 (01:21→13:27)
[2018-12-29] MEDS ORDERED: traZODone 50 MG TABLET PO PRN (02:54)
[2018-12-29] MEDS ORDERED: Ipratropium/Albuterol Neb 3 ML IH PRN ×2 (02:56→13:27)
[2018-12-29] MEDS ORDERED: Isovue-370 500 ML BOTTLE IVP ONE (04:04)
[2018-12-29] MEDS ORDERED: Azithromycin 500 MG in 0.9 % Sodium Chloride 250 ML IVPB SCH (05:00)
[2018-12-29 05:17] LABS: Influenza A PCR Negative (Negative); Influenza B PCR Negative (Negative)
[2018-12-29 06:17] LABS: Basophils % 0.2 %; Immature Granulocytes % 0.5 % (0-4)
[2018-12-29 06:19] LABS: Hematocrit 40.9 % (37.5-50.1); Immature Platelets 7.7 % (1.1-6.1); Lymphocytes # 0.8 K/mcL (0.6-4.6); Mean Corpuscular HGB Conc 34.2 g/dL (31.6-35.5); Mean Corpuscular Hemoglobin 30.4 pg (28.0-33.3); Mean Corpuscular Volume 88.7 fL (83.0-100.0); Mean Platelet Volume 11.5 fL (9.4-12.4); Monocytes # 0.1 K/mcL (0.0-1.3); Monocytes % 2.2 %; Neutrophils # 5.4 K/mcL (1.6-8.9); Red Blood Count 4.61 M/mcL (4.19-5.50); Segmented Neutrophils % 85.1 %; White Blood Count 6.3 K/mcL (4.3-11.1)
[2018-12-29 06:23] LABS: Platelet Count 96 K/mcL (140-400)
[2018-12-29 06:26] LABS: INR 1.3; Prothrombin Time 14.2 Seconds (9.4-12.1)
[2018-12-29 06:39] LABS: BUN/Creatinine Ratio 21 (6-26); Blood Urea Nitrogen 26 mg/dL (8-23); Carbon Dioxide 24 mEq/L (23-29); Chloride 102 mEq/L (98-107); Glucose 154 mg/dL (70-105); Osmolality,Calculated 296 (280-300); Potassium 3.4 mEq/L (3.5-5.1); Sodium 139 mEq/L (136-145); eGFR For African Americans > 60 (> 60); eGFR For Non-African Americans 58 (> 60)
[2018-12-29] MEDS ORDERED: Famotidine 20 MG TABLET PO SCH (07:30)
[2018-12-29] MEDS ORDERED: Loratadine 10 MG TABLET PO PRN ×2 (07:53→13:27)
[2018-12-29] MEDS ORDERED: Furosemide 20 MG/2 ML VIAL IVP SCH (08:00)
[2018-12-29] MEDS ORDERED: predniSONE 20 MG TABLET PO SCH ×2 (09:00)
[2018-12-29] MEDS ORDERED: NON-FORMULARY MEDICATION 1 EACH EACH (Formoterol Fumarate [Perforomist] 20 MCG) IH SCH (09:00)
[2018-12-29] MEDS ORDERED: cefTRIAXone 1,000 MG in Water for inj. (sterile) 10 ML IVP SCH (09:00)
[2018-12-29] MEDS ORDERED: Isosorbide MONOnitrate (24 HR) 60 MG TAB.ER.24H PO SCH (09:00)
[2018-12-29] MEDS ORDERED: NON-FORMULARY MEDICATION 1 EACH EACH (Ezetimibe [Zetia] 10 MG) PO SCH (09:00)
[2018-12-29] MEDS ORDERED: Budesonide/Formoterol 80/4.5 1 PUFF INH IH SCH (10:00)
[2018-12-29] MEDS ORDERED: Ipratropium/Albuterol Neb 3 ML IH SCH (10:00)
[2018-12-29] MEDS ORDERED: Nitroglycerin 25 MG/250 ML INFUS..BTL IVC SCH (13:27)
[2018-12-29] MEDS: Furosemide 20 MG/2 ML VIAL IVP SCH (15:28)
[2018-12-29 18:39] LABS: Adenovirus Not Detected (Not Detect); Bordetella Pertussis Not Detected (Not Detect); Chlamydophila pneumoniae Not Detected (Not Detect); Coronavirus 229E Not Detected (Not Detect); Coronavirus HKU1 Not Detected (Not Detect); Coronavirus NL63 Not Detected (Not Detect); Coronavirus OC43 Not Detected (Not Detect); Human Metapneumovirus Not Detected (Not Detect); Human Rhinovirus/Enterovirus Not Detected (Not Detect); Influenza A Subtype 2009 H1 Not Detected (Not Detect); Influenza A Untypeable Not Detected (Not Detect); Influenza B Not Detected (Not Detect); Mycoplasma pneumoniae Not Detected (Not Detect); Parainfluenza Virus 1 Not Detected (Not Detect); Parainfluenza Virus 2 Not Detected (Not Detect); Parainfluenza Virus 3 Not Detected (Not Detect); Parainfluenza Virus 4 Not Detected (Not Detect); Respiratory Syncytial Virus Not Detected (Not Detect)
[2018-12-29] MEDS: Budesonide/Formoterol 80/4.5 1 PUFF INH IH SCH (19:54)
[2018-12-29] MEDS: traZODone 50 MG TABLET PO PRN (21:47)
[2018-12-30] MEDS ORDERED: Azithromycin 500 MG in 0.9 % Sodium Chloride 250 ML IVPB SCH (05:00)
[2018-12-30] MEDS: Budesonide/Formoterol 80/4.5 1 PUFF INH IH SCH ×2 (07:30→19:53)
[2018-12-30] MEDS: Famotidine 20 MG TABLET PO SCH (08:45)
[2018-12-30] MEDS: Furosemide 20 MG/2 ML VIAL IVP SCH ×2 (08:45→17:50)
[2018-12-30] MEDS: predniSONE 20 MG TABLET PO SCH (08:46)
[2018-12-30] MEDS ORDERED: cefTRIAXone 1,000 MG in Water for inj. (sterile) 10 ML IVP SCH (09:00)
[2018-12-30] MEDS ORDERED: Lisinopril 20 MG TABLET PO SCH (12:00)
[2018-12-30] MEDS ORDERED: NIFEdipine 10 MG CAPSULE PO ONE (21:02)
[2018-12-30] MEDS: traZODone 50 MG TABLET PO PRN (21:15)
[2018-12-31 04:40] LABS: Basophils % 0.2 %; Eosinophils % 0.3 %; Hematocrit 42.1 % (37.5-50.1); Hemoglobin 14.2 g/dL (12.9-16.9); Immature Granulocytes % 0.3 % (0-4); Lymphocytes # 1.9 K/mcL (0.6-4.6); Lymphocytes % 21.1 %; Mean Corpuscular HGB Conc 33.7 g/dL (31.6-35.5); Mean Corpuscular Hemoglobin 30.9 pg (28.0-33.3); Mean Corpuscular Volume 91.7 fL (83.0-100.0); Mean Platelet Volume 11.1 fL (9.4-12.4); Monocytes % 11.4 %; Platelet Count 103 K/mcL (140-400); Red Blood Count 4.59 M/mcL (4.19-5.50); Red Cell Distribution Width 14.4 % (11.5-14.5); Segmented Neutrophils % 66.7 %; White Blood Count 8.9 K/mcL (4.3-11.1)
[2018-12-31 04:55] LABS: BUN/Creatinine Ratio 23 (6-26); Blood Urea Nitrogen 26 mg/dL (8-23); Calcium 8.9 mg/dL (8.6-10.3); Carbon Dioxide 28 mEq/L (23-29); Chloride 104 mEq/L (98-107); Glucose 121 mg/dL (70-105); Osmolality,Calculated 300 (280-300); Potassium 3.6 mEq/L (3.5-5.1); Sodium 142 mEq/L (136-145); eGFR For African Americans > 60 (> 60); eGFR For Non-African Americans > 60 (> 60)
[2018-12-31] MEDS: Famotidine 20 MG TABLET PO SCH (06:12)
[2018-12-31] MEDS: Budesonide/Formoterol 80/4.5 1 PUFF INH IH SCH ×2 (07:30→20:23)
[2018-12-31] MEDS ORDERED: Furosemide 40 MG TABLET PO SCH (09:00)
[2018-12-31] MEDS: predniSONE 20 MG TABLET PO SCH (09:33)
[2018-12-31] MEDS: Sacubitril/Valsartan 49/51 MG 1 TABLET PO SCH ×2 (09:34→20:20)
[2018-12-31] MEDS: Furosemide 20 MG/2 ML VIAL IVP SCH (09:34)
[2018-12-31] MEDS: Fluticasone Propionate Nasal 50 MCG/SPRAY BOTTLE NS SCH (09:35)
[2018-12-31] MEDS: Furosemide 40 MG TABLET PO SCH (16:01)
[2018-12-31] MEDS ORDERED: Furosemide 20 MG TABLET PO SCH (17:00)
[2019-01-01 06:04] LABS: BUN/Creatinine Ratio 25 (6-26); Blood Urea Nitrogen 34 mg/dL (8-23); Calcium 9.4 mg/dL (8.6-10.3); Carbon Dioxide 30 mEq/L (23-29); Chloride 100 mEq/L (98-107); Glucose 158 mg/dL (70-105); Osmolality,Calculated 299 (280-300); Potassium 4.1 mEq/L (3.5-5.1); Sodium 139 mEq/L (136-145); eGFR For African Americans > 60 (> 60); eGFR For Non-African Americans 50 (> 60)
[2019-01-01 07:03] VITALS: BP 144/89
[2019-01-01] MEDS: Budesonide/Formoterol 80/4.5 1 PUFF INH IH SCH (07:29)
[2019-01-01] MEDS: predniSONE 20 MG TABLET PO SCH (07:43)
[2019-01-01] MEDS: Furosemide 40 MG TABLET PO SCH (07:43)
[2019-01-01] MEDS: Sacubitril/Valsartan 49/51 MG 1 TABLET PO SCH (07:43)
[2019-01-01] MEDS: Famotidine 20 MG TABLET PO SCH (07:44)
[2019-01-01] MEDS: Fluticasone Propionate Nasal 50 MCG/SPRAY BOTTLE NS SCH (07:45)
== END 2019-01-01 12:30 | disposition home or self-care (01) | DRG 189 ==
LOC: SUATTDRO 23:14 → ICNU 23:14 → 2ANU 12-29 14:49
PROVIDERS: ADMIT Internal Medicine; ATTEND Family Medicine

== ENCOUNTER 2019-05-18 17:49 | Inpatient (IN) ==
[2019-05-18] MEDS ORDERED: Isovue-370 500 ML BOTTLE IVP ONE (19:26)
[2019-05-18 20:22] LABS: Basophils % 0.4 %; Hemoglobin 14.7 g/dL (12.9-16.9); INR 1.1; Mean Corpuscular Hemoglobin 30.4 pg (28.0-33.3); Prothrombin Time 12.7 Seconds (9.4-12.1); Red Blood Count 4.83 M/mcL (4.19-5.50)
[2019-05-18 20:24] LABS: Eosinophils # 0.2 K/mcL (0.0-0.6); Eosinophils % 2.6 %; Hematocrit 44.2 % (37.5-50.1); Immature Granulocytes % 0.1 % (0-4); Immature Platelets 6.8 % (1.1-6.1); Lymphocytes # 1.9 K/mcL (0.6-4.6); Lymphocytes % 27.1 %; Mean Corpuscular HGB Conc 33.3 g/dL (31.6-35.5); Mean Corpuscular Volume 91.5 fL (83.0-100.0); Monocytes # 0.7 K/mcL (0.0-1.3); Monocytes % 9.8 %; Neutrophils # 4.2 K/mcL (1.6-8.9); Platelet Count 104 K/mcL (140-400); Red Cell Distribution Width 13.3 % (11.5-14.5)
[2019-05-18 20:46] LABS: BUN/Creatinine Ratio 22 (6-26); Blood Urea Nitrogen 26 mg/dL (8-23); Calcium 9.6 mg/dL (8.6-10.3); Carbon Dioxide 27 mEq/L (23-29); Chloride 106 mEq/L (98-107); Glucose 106 mg/dL (70-105); Osmolality,Calculated 295 (280-300); Potassium 4.1 mEq/L (3.5-5.1); Sodium 140 mEq/L (136-145); eGFR For African Americans > 60 (> 60); eGFR For Non-African Americans 59 (> 60)
[2019-05-18] MEDS ORDERED: Cefepime HCl 1,000 MG in Water for inj. (sterile) 10 ML IVP STA (22:42)
[2019-05-19] MEDS ORDERED: Naloxone 0.4 MG/ML INJ IVP PRN (05:15)
[2019-05-19 06:18] LABS: Hematocrit 43.6 % (37.5-50.1); Hemoglobin 14.3 g/dL (12.9-16.9); Immature Platelets 6.4 % (1.1-6.1); Mean Corpuscular HGB Conc 32.8 g/dL (31.6-35.5); Mean Corpuscular Hemoglobin 30.6 pg (28.0-33.3); Mean Corpuscular Volume 93.2 fL (83.0-100.0); Red Blood Count 4.68 M/mcL (4.19-5.50); Red Cell Distribution Width 13.4 % (11.5-14.5); White Blood Count 7.1 K/mcL (4.3-11.1)
[2019-05-19 06:37] LABS: BUN/Creatinine Ratio 21 (6-26); Blood Urea Nitrogen 26 mg/dL (8-23); Calcium 9.4 mg/dL (8.6-10.3); Carbon Dioxide 28 mEq/L (23-29); Chloride 106 mEq/L (98-107); Glucose 108 mg/dL (70-105); Osmolality,Calculated 297 (280-300); Potassium 3.8 mEq/L (3.5-5.1); Sodium 141 mEq/L (136-145); eGFR For African Americans > 60 (> 60); eGFR For Non-African Americans 57 (> 60)
[2019-05-19] MEDS ORDERED: Cefepime HCl 2,000 MG in Water for inj. (sterile) 20 ML IVP SCH (08:00)
[2019-05-19] MEDS ORDERED: traZODone 50 MG TABLET PO PRN (09:21)
[2019-05-19] MEDS ORDERED: carvediloL 6.25 MG TABLET PO SCH (09:30)
[2019-05-19] MEDS: Budesonide/Formoterol 80/4.5 1 PUFF INH IH SCH ×2 (10:26→22:01)
[2019-05-19] MEDS: Famotidine 20 MG TABLET PO SCH (10:28)
[2019-05-19] MEDS: Furosemide 40 MG TABLET PO SCH ×2 (10:28→17:25)
[2019-05-19] MEDS: Isosorbide MONOnitrate (24 HR) 60 MG TAB.ER.24H PO SCH (10:31)
[2019-05-19] MEDS: carvediloL 6.25 MG TABLET PO SCH (17:25)
[2019-05-19] MEDS ORDERED: Ipratropium/Albuterol Neb 3 ML IH PRN (22:00)
[2019-05-19] MEDS: Cefepime HCl 2,000 MG in Water for inj. (sterile) 20 ML IVP SCH (22:20)
[2019-05-20 06:35] LABS: Hemoglobin 14.1 g/dL (12.9-16.9); Red Cell Distribution Width 13.3 % (11.5-14.5); White Blood Count 6.1 K/mcL (4.3-11.1)
[2019-05-20 06:37] LABS: Basophils % 0.7 %; Eosinophils # 0.3 K/mcL (0.0-0.6); Eosinophils % 4.1 %; Hematocrit 42.9 % (37.5-50.1); Immature Granulocytes % 0.5 % (0-4); Immature Platelets 6.3 % (1.1-6.1); Lymphocytes # 1.7 K/mcL (0.6-4.6); Lymphocytes % 27.5 %; Mean Corpuscular HGB Conc 32.9 g/dL (31.6-35.5); Mean Corpuscular Hemoglobin 30.5 pg (28.0-33.3); Mean Corpuscular Volume 92.9 fL (83.0-100.0); Mean Platelet Volume 10.9 fL (9.4-12.4); Monocytes # 0.6 K/mcL (0.0-1.3); Monocytes % 10.5 %; Red Blood Count 4.62 M/mcL (4.19-5.50); Segmented Neutrophils % 56.7 %
[2019-05-20 06:49] LABS: BUN/Creatinine Ratio 17 (6-26); Blood Urea Nitrogen 20 mg/dL (8-23); Calcium 8.9 mg/dL (8.6-10.3); Carbon Dioxide 27 mEq/L (23-29); Chloride 106 mEq/L (98-107); Glucose 110 mg/dL (70-105); Osmolality,Calculated 295 (280-300); Potassium 3.4 mEq/L (3.5-5.1); Sodium 141 mEq/L (136-145); eGFR For African Americans > 60 (> 60); eGFR For Non-African Americans 58 (> 60)
[2019-05-20 07:19] LABS: Neutrophils # 3.5 K/mcL (1.6-8.9); Platelet Count 98 K/mcL (140-400)
[2019-05-20] MEDS: Budesonide/Formoterol 80/4.5 1 PUFF INH IH SCH (07:55)
[2019-05-20] MEDS: Isosorbide MONOnitrate (24 HR) 60 MG TAB.ER.24H PO SCH (08:11)
[2019-05-20] MEDS: Furosemide 40 MG TABLET PO SCH (08:11)
[2019-05-20] MEDS: Famotidine 20 MG TABLET PO SCH (08:11)
[2019-05-20] MEDS: carvediloL 6.25 MG TABLET PO SCH (08:11)
[2019-05-20] MEDS: Cefepime HCl 2,000 MG in Water for inj. (sterile) 20 ML IVP SCH (08:12)
[2019-05-20] MEDS ORDERED: lisinopriL 10 MG TABLET PO SCH (09:00)
[2019-05-20 11:08] VITALS: BP 171/87
[2019-05-20] MEDS ORDERED: Aminoglycoside Consult 1 EACH MC ONE (15:15)
== END 2019-05-20 15:16 | disposition home or self-care (01) | DRG 603 ==
LOC: 3ANU 17:49 → EMEROOARM 17:49 → SUATTDRO 23:34 → 3ANU 05-19 00:22 → SUATTDRO 05-19 15:29
PROVIDERS: ADMIT Family Medicine; ATTEND Student in an Organized Health Care Education/Training Program